=== PATIENT | male | born 1930 | race Caucasian/White ===

== ENCOUNTER 2017-10-10 14:59 | Inpatient (IN) | payer MEDICARE, BC ==
[2017-10-10 15:27] LABS: Hemoglobin 13.3 g/dL (14.0-18.0); Mean Corpuscular HGB CONC 33.3 g/dL (32.0-36.0); Mean Corpuscular Hemoglobin 30.5 pg (27.0-31.0); Mean Corpuscular Volume 91.7 fl (80.0-94.0); Mean Platelet Volume 7.3 fL (7.4-10.4); Platelet Count 155 thou/uL (130-400); RBC Distribution Width 12.8 % (11.5-14.5); Red Blood Cell (RBC) Count 4.36 mill/uL (4.70-6.10)
[2017-10-10 15:43] LABS: Band 20 % (5-11); Lymphocytes 6 % (21-51); MDiff Complete? YES; Monocytes 11 % (0-10); Neutrophil 63 % (42-75)
[2017-10-10] MEDS ORDERED: Acetaminophen 325 MG Suppository ONE (15:47)
[2017-10-10 15:51] LABS: ALT (SGPT) 21 U/L (8-55); AST (SGOT) 48 U/L (5-34); Albumin 3.6 g/dL (3.4-4.8); Alkaline Phosphatase 62 U/L (40-150); Anion Gap 18 mmol/L (10-20); BUN (Urea Nitrogen) 34 mg/dL (8.4-25.7); Bilirubin, Total 0.8 mg/dL (0.2-1.2); CK (CPK) 699 U/L (30-200); Calc. Creatinine Clearance 0 mL/min (70-130); Calcium 9.7 mg/dL (7.8-10.44); Carbon Dioxide 18 mmol/L (23-31); Chloride 108 mmol/L (98-107); Estimated GFR-MDRD 42; Glucose 87 mg/dL (83-110); Potassium 5.2 mmol/L (3.5-5.1); Protein, Total 6.6 g/dL (5.8-8.1); Sodium 139 mmol/L (136-145)
[2017-10-10 15:52] LABS: CKMB 2.4 ng/mL (0-6.6); Troponin I 0.078 ng/mL (< 0.028)
[2017-10-10 15:53] LABS: Bilirubin Small (Negative); Blood, Urine Moderate (Negative); Clarity CLOUDY (Clear); Glucose, Urine (Dipstick) Negative (Negative); Leukocyte Small (Negative); Nitrite Negative (Negative); Protein, Urine (Dipstick) 30 mg/dL (Neg-Trace); Specific Gravity, Urine 1.018 (1.002-1.036); Urobilinogen 0.2 mg/dL (0.2-1.0); pH, Urine 5.5 (5.0-9.0)
--- NOTE | 2017-10-10 15:56 | RAD ---
CHEST 1 VIEW: Date: 10/10/17 HISTORY: Possible sepsis. Shortness of breath. COMPARISON: None. FINDINGS: There is a left-sided transvenous pacemaker with lead position in right atrium and right ventricle. S ternotomy wires are present. There is atherosclerosis of aorta. Diminished lung volumes. Patchy inter stitial opacities in the right lung. There are interstitial and alveolar infiltrates in the left tenisha hilar region and left lower lobe. Small left-sided effusion suspected. No pneumothorax. IMPRESSION: 1. Pleural and parenchymal changes left lung base. 2. Patchy interstitial opacities right lung. 3. Atherosclerosis. POS: [facility]
[2017-10-10 15:57] LABS: Pathc Cast-AUWi Flag 1.21 (0-2.49); Squamous Epithelial 0-3 HPF (0-3)
[2017-10-10 16:07] LABS: Yeast-AUWi Flag 40.6 (0-25.0)
[2017-10-10 16:14] LABS: Bacteria/HPF 2+ HPF (None Seen); Hyaline Casts/LPF 0-3 HYALINE CAST LPF (0-3 Hyaline); Renal Epithelial None Seen HPF (0-3); Transitional Epithelial NONE SEEN HPF (0-3); Yeast-All Forms None Seen HPF (None Seen)
[2017-10-10] MEDS ORDERED: Piperacillin/Tazobactam 4.5 GM in Sodium Chloride 0.9% 100 ML IVPB SCH (16:15)
[2017-10-10] MEDS ORDERED: Vancomycin HCl 1.25 GM in Sodium Chloride 0.9% 250 ML 250 ML IVPB SCH (16:15)
--- NOTE | 2017-10-10 16:52 | RAD ---
PORTABLE CHEST 1 VIEW: Date: 10/10/17 Time: 1544 hours HISTORY: Altered mental status. FINDINGS/IMPRESSION: The heart is enlarged. There are changes of median sternotomy. There is a left-sided pacemaker device . There are patchy areas of consolidation in the left lung. No pneumothoraces or large effusions are seen. Findings are suspicious for pneumonia. POS: OFF
[2017-10-10] MEDS ORDERED: Norepinephrine 8 MG in Sodium Chloride 0.9% 250 ML 250 ML IVPB PRN (16:56)
--- NOTE | 2017-10-10 18:35 | HP ---
DATE OF ADMISSION: 10/10/2017 CHIEF COMPLAINT: Found unresponsive at home. HISTORY OF PRESENT ILLNESS: This is an 87-year-old white male who has known history of hypertension, history of pacemaker and recent history of aortic valve repair. The patient was in his usual state of health, living alone. His being few years ago. The patient was visited by one of [facility] service today afternoon around 3:00 and was noted to have patient was lying with his waist do wn on the bed and with legs hanging from the bed. When the maid approach the patient, he just opened his eyes and was alert and was very weak. The patient was brought to the ER for further evaluation. He was noted to have acute shortness of breath with a drop in saturations in 80% with systolic bloo d pressures in the 60s. When ER physician questioned him, patient was able to talk in full sentences and was more alert. He was given 2 liters of normal saline and his blood pressures systolic moved u p to 70s with a low map of 45. The patient had a thorough evaluation with chest x-ray showing eviden ce of bilateral pneumonia with right-sided infiltrates dominating over the left side. He had a mild troponin elevation with EKG being normal. The patient also had mildly elevated WBCs with mild elevat ion of bands. His urine was suggestive of a urinary tract infection. The patient was seen in the ER, he was alert and oriented, but had some coarse breath sounds, but he was saturating 99%. Able to talk about the code status with the patient, he wanted a full resuscitat ion including intubation. I discussed the case also with patient's daughter who is the medical power of state attorney and she also s uggested complete full resuscitation if needed. I also discussed the case with his grandson who is rubin general surgeon, who said the patient has a history of aortic valve repair and also has a cardiolo gist in town. Patient had very low blood pressures, so I requested the ER physician to start him on a central line and start him on Levophed at this time. PAST MEDICAL HISTORY: Hypertension, patient denies having any abdominal pain. Denies having any tracy sea. At this time, no vomiting, no recent diarrhea, no constipation. No history of any sick contact s. He did have a flu vaccine this season and he denies having any sick contacts recently. He does c omplain of some dry cough for the past few days, but otherwise he denies choking on food. He denies having any chest pain or any recent shortness of breath. PAST MEDICAL HISTORY: 1. Hypertension. 2. History of pacemaker placement. 3. History of aortic valve repair. The details are not available. 4. History of bladder intervention recently. PAST SURGICAL HISTORY: 1. Pacemaker implantation. 2. Recent bladder surgery. 3. History of aortic valve repair. SOCIAL HISTORY: The patient is a nonsmoker. No history of alcohol, no history of illicit drug use. He lives alone and is . FAMILY HISTORY: No significant family history of coronary artery disease or any premature deaths in the family. REVIEW OF SYSTEMS: All 12 systems are reviewed with the patient thoroughly and found to be negative at this time except the ones described in history of present illness. Constitutional: Weight loss or gain, sense of well-being, ability to conduct usual activities, exerc ise tolerance. Skin/Breast: Rash, itching, changes in hair growth or loss, nail changes, breast lumps, tenderness, swelling, nipple discharge. Eyes: Vision, double vision, tearing, blind spots, pain. ENT/Mouth: Headaches (location, time of onset, duration, precipitating factors), vertigo, lightheade dness, injury. Vision, double vision, tearing, blind spots, pain, nose bleeding, colds, obstruction, discharge, dental difficulties, gingival bleeding, dentures, neck stiffness, pain, tenderness, mikey s in thyroid or other areas. Cardiovascular: Precordial pain, substernal distress, palpitations, syncope, dyspnea on exertion, or thopnea, nocturnal paroxysmal dyspnea, edema, cyanosis, hypertension, heart murmurs, varicosities, ph lebitis, claudication. Respiratory: Pain, shortness of breath, wheezing, stridor, cough, hemoptysis, fever or night sweats. Gastrointestinal: Poor appetite, dysphagia, indigestion, abdominal pain, heartburn, eructation, naus ea, vomiting, hematemesis, jaundice, constipation, or diarrhea, abnormal stools (eloy-colored, tarry, bloody, greasy, foul smelling), flatulence, hemorrhoids, recent changes in bowel habits. Genitourinary: Urgency, frequency, dysuria, nocturia, hematuria, polyuria, oliguria, unusual (or bruce nge in) color of urine, stones, hesitancy, change in size of stream, dribbling, acute retention or in continence, libido, potency. Musculoskeletal: Pain, swelling, redness or heat of muscles or joints, limitation, of motion, muscul ar weakness, atrophy, cramps. Neurologic/Psychiatric: Convulsions, paralyses, tremor, incoordination, parasthesias, difficulties w ith memory of speech, sensory or motor disturbances, or muscular coordination (ataxia, tremor), emoti onal problems, anxiety, depression, previous psychiatric care, unusual perceptions, hallucinations. Allergy/Immunologic: Skin rash, anemia, bleeding tendency, polydipsia, polyuria, intolerance to heat or cold. PHYSICAL EXAMINATION: VITAL SIGNS: Blood pressures are 70/45 with a map of 41, respiratory rate of 20, saturation is 99% o n 3 liters. GENERAL: The patient is seen lying in the bed supine, does not appears to be in any acute distress a t this time. He is alert and oriented. HEENT: Atraumatic, normocephalic. PERRLA. Extraocular movements are intact. Oral mucosa is dry. CARDIOVASCULAR: S1, S2 normal. No murmurs, rubs or gallops. LUNGS: Bilateral air entry was equal. No wheezing, no crackles. ABDOMEN: Soft, nontender, no guarding, no rebound tenderness. Bowel sounds normal. MUSCULOSKELETAL: No calf tenderness or pedal edema. No joint tenderness, no joint swelling. SKIN: No cyanosis, no erythema, no rash, no pallor. INTERNAL GRINDING MACHINE OPERATOR: Cranial examination II-XII intact. No focal deficits were noted. NECK: No JVD, no lymphedema, no lymphadenopathy was noted. PSYCHIATRIC: No signs of suicidal ideation, no signs of luis enrique. No signs of agitation. No signs of depression were noted. LABORATORY DATA: Sodium 139, potassium 5.2, chloride 108, bicarbonate is 18, BUN is 34, creatinine i s 1.58, blood sugar is 87. Lactic acid is 4.5, AST 48, ALT 21. CK is 699, troponin 0.078. UA was positive for urinary tract infection. Chest x-ray was done showing evidence of pleural and parenchymal changes in the left lung base, showi ng an evidence of patchy interstitial opacities in the right lung. ASSESSMENT: 1. Septic shock. 2. Acute aspiration pneumonia. 3. Acute hypoxic respiratory failure. 4. History of aortic valve repair, need to rule out cardiogenic shock. 5. Acute urinary tract infection. 6. Hyperkalemia. 7. Acute kidney injury with oliguria. 8. Non-ST elevation myocardial infarction PLAN: 1. Plan is to continue the IV fluids with fluid resuscitation. Continue 100 mL an hour and we will start the patient on Levophed after central line is placed. Critical care, Dr. Dykes has been consul candida from the ER. We will follow with recommendations. At this time, we will empirically start the p atient on levofloxacin, Zosyn, and vancomycin for broad coverage for sepsis. 2. The patient has evidence of aspiration pneumonia with right-sided infiltrates at this time. We w ill cover with above antibiotics and we will continue with the nebulizer treatments, DuoNebs and albu terol nebs as needed. 3. We will do a speech evaluation in the morning and we will keep the patient n.p.o. except for the medications. 4. The patient has acute respiratory failure likely from the pneumonia. We will closely monitor his respiratory status at this time and if needed, we will plan to intubate at this time. We will get s tat ABGs for the baseline hypoxia. 5. Need to evaluate if the patient has a pulmonary embolism. We will start the patient on Lovenox a t this time with a 1 mg/kg b.i.d. 6. Elevated troponins, most likely this could be a demand ischemia, likely from an organ hypoperfusi on from low blood pressures. We will continue with aspirin per rectal and we will hold off on the be ta blockers because of the low blood pressures. 7. Patient has low renal perfusion as causing a call renal insufficiency at this time. We will cont inue with IV fluids at this time. We will closely monitor the renal functions. 8. Patient has elevated potassium. We will do Kayexalate to bring down the potassium levels. 9. The patient has evidence of urinary tract infection which could have triggered everything, this w ould be covered with above antibiotics. 10. We will send for urine cultures. 11. This patient has history of aortic valve repair. We will do a stat echo to look for any evidenc e of wall motion abnormalities or any worsening valvular problem. We will consult Cardiology based o n that. 12. Deep venous thrombosis prophylaxis. The patient will be on Lovenox. Dictating physician, Reza Gillespie, has spent 75 minutes with this patient; of this, one hour as critic al care time.
[2017-10-10] MEDS ORDERED: Acetaminophen 325 MG TAB PO PRN (18:51)
[2017-10-10] MEDS ORDERED: Ondansetron HCl/PF 4 MG/2 ML Vial IVP PRN ×2 (18:51→19:21)
[2017-10-10] MEDS ORDERED: Ondansetron ODT 4 MG TAB SL PRN (18:51)
[2017-10-10] MEDS ORDERED: Lactated Ringer's 1,000 ML IV SCH (19:00)
[2017-10-10 19:13] LABS: Troponin I 0.099 ng/mL (< 0.028)
[2017-10-10] MEDS ORDERED: Sodium Chloride 0.9% 1,000 ML IV SCH (19:21)
[2017-10-10] MEDS ORDERED: Norepinephrine 8 MG/0.9% NS 250 ML IVPB SCH (19:21)
[2017-10-10 19:51] LABS: Lactic Acid 6.3 mmol/L (0.5-2.2)
--- NOTE | 2017-10-10 20:14 | RAD ---
CHEST ONE VIEW: History: Central line placement. Comparison: Radiograph same day. FINDINGS: Left upper lobe opacity as well as a left lower opacity are present. Central venous catheter is in pl gray with tip poorly seen although likely projecting over the inferior SVC. No pneumothorax. IMPRESSION: Uncomplicated placement of central venous catheter with the tip poorly seen although likely projectin g over the inferior SVC. POS: [facility]
[2017-10-10 20:15] VITALS: BMI 30.2
[2017-10-10] MEDS: Sodium Chloride 0.9% 1,000 ML IV SCH (20:31)
[2017-10-10] MEDS ORDERED: Vancomycin HCl 1 GM in Sodium Chloride 0.9% 250 ML 250 ML IVPB SCH (21:00)
[2017-10-10] MEDS ORDERED: Famotidine/PF 20 mg/2ml Vial SLOW IVP SCH (21:00)
[2017-10-10 21:58] LABS: Troponin I 0.078 ng/mL (< 0.028)
[2017-10-11 04:49] LABS: Anion Gap 15 mmol/L (10-20); BUN (Urea Nitrogen) 36 mg/dL (8.4-25.7); Calc. Creatinine Clearance 49 mL/min (70-130); Calcium 8.6 mg/dL (7.8-10.44); Carbon Dioxide 19 mmol/L (23-31); Chloride 109 mmol/L (98-107); Estimated GFR-MDRD 55; Glucose 75 mg/dL (83-110); Potassium 4.1 mmol/L (3.5-5.1); Sodium 139 mmol/L (136-145)
[2017-10-11] MEDS: Piperacillin/Tazobactam 4.5 GM in Sodium Chloride 0.9% 100 ML IVPB SCH ×3 (05:09)
[2017-10-11] MEDS: Sodium Chloride 0.9% 1,000 ML IV SCH ×2 (05:31→15:59)
[2017-10-11 06:10] LABS: Band 25 % (5-11); Hemoglobin 11.9 g/dL (14.0-18.0); Lymphocytes 5 % (21-51); MDiff Complete? YES; Mean Corpuscular HGB CONC 33.7 g/dL (32.0-36.0); Mean Corpuscular Hemoglobin 30.8 pg (27.0-31.0); Mean Corpuscular Volume 91.4 fl (80.0-94.0); Mean Platelet Volume 7.1 fL (7.4-10.4); Metamyelocyte 4 % (0-0); Monocytes 9 % (0-10); Myelocyte 1 % (0-0); Neutrophil 56 % (42-75); Platelet Count 159 thou/uL (130-400); RBC Distribution Width 13.1 % (11.5-14.5); Red Blood Cell (RBC) Count 3.87 mill/uL (4.70-6.10)
[2017-10-11] MEDS ORDERED: guaiFENesin/Dextromethorphan 10 ML UDCUP PO PRN (07:27)
--- NOTE | 2017-10-11 07:52 | CON ---
DATE OF CONSULTATION: 10/11/2017 CONSULTING PHYSICIAN: Dr. Reza Gillespie from the Hospitalist group. REASON FOR CONSULTATION: Pneumonia and septic shock. HISTORY OF PRESENT ILLNESS: This is an 87-year-old male who was apparently found in bad shape at [facility] by a maid. He was brought to the ER where he was found to be in septic shock from a left-sided pne [place]. He has been fluid resuscitated and given antibiotics. He is currently requiring Levophed fo r vasopressor support and he is hospitalized in the CCU. He is somewhat confused and difficult to ge t a history from. PAST MEDICAL HISTORY: 1. Hypertension. 2. Aortic valve disease requiring replacement. 3. Pacemaker placement. 4. Some type of bladder intervention. SOCIAL HISTORY: Nonsmoker, does not consume alcohol. Lives alone, is . MEDICATIONS PRIOR TO ADMISSION: Not known at this time. FAMILY MEDICAL HISTORY: Not known. REVIEW OF SYSTEMS: Twelve point review of systems is unobtainable secondary to patient's confusion. PHYSICAL EXAMINATION: VITAL SIGNS: Temperature 98.2, pulse 83, blood pressure 136/59, O2 sat 95%, currently on nasal cannu la. Total intake 2730, output 405. GENERAL: The patient is arousable. He was not oriented to place, but was oriented to date and perso n. HEENT: Unremarkable. NECK: No adenopathy or JVD. LUNGS: Coarse rhonchi bilaterally. CARDIOVASCULAR: S1, S2, paced. He has a midline sternotomy scar. ABDOMEN: Soft, nontender, no hepatosplenomegaly. EXTREMITIES: No clubbing, cyanosis, or edema. NEUROLOGIC: He moves all 4 extremities without difficulty. LABORATORY DATA: Sodium 139, potassium 4.1, chloride 109, CO2 19, BUN 36, creatinine 1.2, glucose 75 . Lactate 6.3, troponin 0.78. C-reactive protein 8.33. Urinalysis showed 4-6 white blood cells, 7- 10 red blood cells. White blood cell count 18, hematocrit 35.4, platelet count 159 with 56% neutroph ils, 25% bands. Chest x-ray reviewed by myself personally demonstrates a left-sided infiltrate. He has a central zoran e present in the right IJ that is in good position. Initial x-ray shows blurring left diaphragm, but this cleared on subsequent x-ray. ASSESSMENT: 1. Community-acquired pneumonia. 2. Septic shock. 3. Advanced age. 4. History of pacemaker placement. PLAN: The patient has been reasonably fluid resuscitated. We will check a CVP to see what his volum e status is. He will continue broad spectrum IV antibiotics to include Zosyn, Levaquin, and vancomyc in. I will go ahead and check a cortisol level to make sure he is not adrenally insufficient. He is on Pepcid for gastrointestinal prophylaxis and enoxaparin for DVT prophylaxis. Prognosis is guarded at this time. We will follow. The above encompassed 35 minutes critical care time.
[2017-10-11] MEDS ORDERED: Norepinephrine 8 MG in Sodium Chloride 0.9% 250 ML 250 ML IVPB PRN (08:10)
[2017-10-11] MEDS ORDERED: Prevnar 13-Val Conj/PF 0.5 ML SYRINGE IM ONE (09:00)
[2017-10-11] MEDS: Piperacillin/Tazobactam 3.375 GM in Sodium Chloride 0.9% 100 ML IVPB SCH ×2 (09:40→16:29)
[2017-10-11] MEDS: Enoxaparin Sodium 40 MG/0.4 ML SYRINGE SC SCH (09:40)
--- NOTE | 2017-10-11 13:05 | CON ---
CRITICAL CARE NOTE TIME: 30 minutes DATE OF SERVICE: 10/11/2017 HISTORY: The patient is an 87-year-old gentleman with a history of aortic valve replacement who presented with acute onset of weakness and apparently lost consciousness. The patient in 2011 underwent aortic valve replacement and apparently coronary bypass graft surgery x2. The patient also had placement of electronic pacemaker. The patient states that he acutely apparently became weak. He denied having any chest discomfort. He apparently became disoriented and was sent to the emergency room for further evaluation. The patient denied having any chest discomfort or dyspnea. The patient denied having any fevers or chills. PAST MEDICAL HISTORY: 1. Coronary artery disease. 2. Aortic valve replacement. 3. Dyslipidemia. 4. Hypertension. PAST SURGICAL HISTORY: Bladder surgery,and aortic valve repair. SOCIAL HISTORY: Nonsmoker. FAMILY HISTORY: No strong family history of coronary artery disease. ALLERGIES: No known drug allergies. MEDICATIONS ON ADMISSION: Atenolol 25 daily, Crestor 5 daily, Flomax 0.4 daily , and a baby aspirin tablet daily. PHYSICAL EXAMINATION: GENERAL: An ill-appearing gentleman. VITAL SIGNS: Blood pressure 124/61 on Levophed. NECK: No jugular venous distention. LUNGS: Crackles in the left lung base. HEART: Regular rate and rhythm, normal S1, S2. ABDOMEN: Nondistended. EXTREMITIES: Showed no edema. SKIN: The skin is warm and dry. VASCULAR: Radial pulses 2+. LABORATORY DATA: White blood cell count 18.0, hemoglobin 11.9, hematocrit 35.4 and his platelets are 159. Sodium was 139, potassium 4.1, chloride 109, bicarbonate 19, BUN 36, creatinine 1.2. Troponin 0.078. His EKG revealed him to have electronic ventricular pacemaker. His chest x-ray revealed evidence of a left lower lobe infiltrate. IMPRESSION: 1. Septic shock/pneumonia. 2. History of aortic valve repair. 3. History of coronary bypass graft surgery. 4. History of pacemaker placement. 5. Dyslipidemia. 6. Hypertension. This gentleman presents with septic shock. From a cardiac standpoint, we will restart him on aspirin and lipid lowering medication. The patient's troponin is indeterminate, probably secondary to demand ischemia. We will follow this patient with you through his hospitalization. We will check the patient's echocardiogram. Critical care note 30 minutes. MARIA ESTHER
[2017-10-11] MEDS ORDERED: Aspirin 81 mg Enteric Coated Tablet PO SCH (14:00)
--- NOTE | 2017-10-11 14:03 | PDOC.PN ---
- Subjective Encounter Start Date: 10/11/17 Encounter Start Time: 11:00 Iris is seen today, aleert and orirented x2, Discussed with patient Cousin on phone and Daughter at Bedside, explained about the prognosis is poor due to severe sepsis and septic shock. Answered all the questions. - Objective Resuscitation Status: Resuscitation Status FULL:Full Resuscitation MAR Reviewed: Yes Vital Signs & Weight: Vital Signs (12 hours) Temp Pulse Resp Pulse Ox 10/11/17 12:00 98.0 F 10/11/17 08:00 98.5 F 72 24 H 98 10/11/17 06:47 98 10/11/17 04:00 98.2 F Weight Weight 187 lb 6.287 oz Most Recent Monitor Data Heart Rate from ECG 73 NIBP 124/61 NIBP BP-Mean 100 Respiration from ECG 21 SpO2 98 I&O: 10/10/17 10/11/17 10/12/17 06:59 06:59 06:59 Intake Total 2730 320 Output Total 405 220 Balance 2325 100 Result Diagrams: 10/11/17 03:55 10/11/17 03:55 Radiology Reviewed by me: Yes EKG Reviewed by me: Yes Phys Exam - Physical Examination HEENT: PERRLA, moist MMs Neck: no nodes, no JVD Respiratory: no rales, wheezing present Cardiovascular: RRR, no significant murmur Gastrointestinal: soft, non-tender Musculoskeletal: no edema, pulses present Neurological: non-focal, normal sensation Psychiatric: normal affect, A&O x 3 Skin: no rash, normal turgor Dx/Plan (1) Septic shock Code(s): A41.9 - SEPSIS, UNSPECIFIED ORGANISM; R65.21 - SEVERE SEPSIS WITH SEPTIC SHOCK Status: Acute Comment: Pt is On levophed, Still on IV fluids, Will continue to Monitor, pt is On IV antibitoics Levofloxaic, Zosyn and vancomycin broad coverage, Critical care on Board, continue with nebs ss needed. Worseing Sepsis noted. Blood Cultures grwoing Gram positive Staph epi? (2) Acute aspiration pneumonia Code(s): J69.0 - PNEUMONITIS DUE TO INHALATION OF FOOD AND VOMIT Status: Acute Comment: Left Lung and Right upperr lobe Infiltatre, Noted, Will continue with Above Antibitoics, With Neb treamtnet. Waiting on Speech evalaution, (3) Acute respiratory failure with hypoxia Code(s): J96.01 - ACUTE RESPIRATORY FAILURE WITH HYPOXIA Status: Acute Comment: Pt is stbale with nasal Canula 3-4 literes saturating well, oriented. and alert. (4) H/O aortic valve repair Status: Acute Comment: Cardiology Consulted, Echo pending, need to R/o Any evidence of Endocarditiis. H/o aortic valave repair. (5) Acute UTI Code(s): N39.0 - URINARY TRACT INFECTION, SITE NOT SPECIFIED Status: Acute Comment: Waitng for the cultures. COntinue abouve Abx, good urine output Noted. - Plan cont current plan of care, plan discussed w/ family, continue antibiotics, speech therapy, incentive spirometry * . - Discharge Day Encounter end time: 11:40 (35 Min of Critical care Time ) Review of Systems - Review of Systems Constitutional: weakness, malaise Respiratory: Shortness of Breath, Sputum, Wheezing Cardiovascular: negative: chest pain, palpitations, orthopnea, paroxysmal nocturnal dyspnea, edema, light headedness, other Gastrointestinal: negative: Nausea, Vomiting, Abdominal Pain, Diarrhea, Constipation, Melena, Hematochezia, Other Genitourinary: negative: Dysuria, Frequency, Incontinence, Hematuria, Retention , Other Musculoskeletal: negative: Neck Pain, Shoulder Pain, Arm Pain, Back Pain, Hand Pain, Leg Pain, Foot Pain, Other Skin: negative: Rash, Lesions, Danny, Bruising, Other - Medications/Allergies Allergies/Adverse Reactions: Allergies Allergy/AdvReac Type Severity Reaction Status Date / Time No Known Drug Allergies Allergy Verified 10/10/17 21:44 Medications: Current Medications Aspirin (Ecotrin) 81 mg PO DAILY [facility] Aspirin (Ecotrin) 81 mg PO NOW [facility] Stop: 10/11/17 16:00 Enoxaparin Sodium (Lovenox) 40 mg SC 0900 [facility] Last Admin: 10/11/17 09:40 Dose: 40 mg Famotidine (Pepcid) 20 mg PO QPM [facility] Guaifenesin/Dextromethorphan (Robitussin Dm) 10 ml PO Q6H PRN PRN Reason: Cough Sodium Chloride (Normal Saline 0.9%) 1,000 mls @ 100 mls/hr IV .Q10H [facility] Last Admin: 10/11/17 05:31 Dose: 1,000 mls Vancomycin HCl 1 gm/ Device 200 mls @ 200 mls/hr IVPB 1700 [facility] Levofloxacin 750 mg/ Device 150 mls @ 100 mls/hr IVPB Q2D@1600 [facility] Piperacillin Sod/Tazobactam (Sod 3.375 gm/ Sodium Chloride) 100 mls @ 200 mls/ hr IVPB 0500,1100,1700,2300 [facility] Last Admin: 10/11/17 09:40 Dose: 100 mls Norepinephrine Bitartrate 8 mg (/ Sodium Chloride) 258 mls @ 0 mls/hr IVPB INF PRN; Protocol; Titrate PRN Reason: Blood Pressure Last Admin: 10/11/17 09:50 Dose: 258 mls Miscellaneous Medication (Pharmacy To Dose) 1 each IVPB PRN PRN PRN Reason: . Ondansetron HCl (Zofran) 4 mg IVP Q6H PRN PRN Reason: Nausea/Vomiting Pneumococcal 13-Valent Conj Vacc (Prevnar) 0.5 ml IM .ONCE ONE Stop: 10/14/17 09:16 Rosuvastatin Calcium (Crestor) 5 mg PO HS [facility]
[2017-10-11 15:29] LABS: Actual Bicarbonate (HCO3a) 17.9 mEq/L (22-26); Base Excess (BEa) -6.7 mEq/L (0 (+/-) 2.5); Hemoglobin (Hb) 12.3 g/dL (14.0-18.0); pH, Arterial 7.35 (7.35-7.45)
[2017-10-11 15:30] LABS: Calcium, Ionized 1.2 mmol/L (1.12-1.30); Puncture Site RR
[2017-10-11] MEDS ORDERED: Aspirin 300 MG Suppository PR SCH (15:45)
[2017-10-11] MEDS ORDERED: Lorazepam 2 MG/ML VIAL SLOW IVP PRN ×2 (15:45→20:45)
[2017-10-11] MEDS: Vancomycin HCl 1 GM in Premix Bag 1 BAG IVPB SCH (16:33)
[2017-10-11] MEDS: Famotidine 20 MG TAB PO SCH (21:33)
[2017-10-11] MEDS: Rosuvastatin 5 MG TAB PO SCH (21:33)
[2017-10-12] MEDS: Piperacillin/Tazobactam 3.375 GM in Sodium Chloride 0.9% 100 ML IVPB SCH ×5 (00:10→22:30)
[2017-10-12] MEDS: Sodium Chloride 0.9% 1,000 ML IV SCH (01:45)
[2017-10-12 04:36] LABS: Anion Gap 9 mmol/L (10-20); BUN (Urea Nitrogen) 30 mg/dL (8.4-25.7); Calc. Creatinine Clearance 56 mL/min (70-130); Carbon Dioxide 22 mmol/L (23-31); Chloride 112 mmol/L (98-107); Estimated GFR-MDRD 65; Glucose 87 mg/dL (83-110); Potassium 3.3 mmol/L (3.5-5.1); Sodium 140 mmol/L (136-145)
[2017-10-12 04:48] LABS: Band 31 % (5-11); Hemoglobin 11.5 g/dL (14.0-18.0); Lymphocytes 7 % (21-51); MDiff Complete? YES; Mean Corpuscular HGB CONC 33.2 g/dL (32.0-36.0); Mean Corpuscular Hemoglobin 30.9 pg (27.0-31.0); Mean Corpuscular Volume 93.3 fl (80.0-94.0); Mean Platelet Volume 7.6 fL (7.4-10.4); Monocytes 4 % (0-10); Neutrophil 58 % (42-75); Platelet Count 126 thou/uL (130-400); RBC Distribution Width 12.9 % (11.5-14.5); Red Blood Cell (RBC) Count 3.72 mill/uL (4.70-6.10); White Blood Cell (WBC) Count 15.6 thou/uL (4.8-10.8)
[2017-10-12] MEDS ORDERED: CCU Electrolyte Replacement 1 EACH FS ONE (08:25)
[2017-10-12] MEDS ORDERED: Potassium Phosphate 15 MMOL in Sodium Chloride 0.9% 250 ML 250 ML IV PRN (08:31)
[2017-10-12] MEDS ORDERED: Magnesium Oxide 400 MG TAB PO PRN ×2 (08:31)
[2017-10-12] MEDS ORDERED: Potassium Chloride 40 MEQ in Sodium Chloride 0.9% 250 ML 250 ML IVPB PRN (08:31)
[2017-10-12] MEDS ORDERED: Magnesium 2 GM/NS 0.9% 100 ML 2 GM in Premix Bag 1 BAG IVPB PRN (08:31)
[2017-10-12] MEDS ORDERED: Potassium Chloride 20 MEQ TAB PO PRN (08:31)
[2017-10-12] MEDS ORDERED: Potassium Phosphate 9 MMOL in Sodium Chloride 0.9% 100 ML IVPB PRN (08:31)
[2017-10-12] MEDS ORDERED: Potassium Chloride 40 MEQ in Premix Bag 1 BAG IVPB PRN (08:31)
[2017-10-12] MEDS ORDERED: Potassium Phosphate 12 MMOL in Sodium Chloride 0.9% 250 ML 250 ML IV PRN (08:31)
[2017-10-12] MEDS: Enoxaparin Sodium 40 MG/0.4 ML SYRINGE SC SCH (08:32)
--- NOTE | 2017-10-12 08:42 | PRG ---
DATE OF SERVICE: 10/12/2017 PULMONARY AND CRITICAL CARE PROGRESS NOTE SUBJECTIVE: Mr. Gomez had a rough day yesterday. He required initiation of BiPAP. Once given some Ativan, he was able to go to sleep and he seems much better this morning. PHYSICAL EXAMINATION: VITAL SIGNS: Temperature 97.8, pulse 66, blood pressure 148/71. He is off the Levophed drip as of a bout 3:00 this morning. Total intake for 24 hours 1711 and output 1290. HEENT: Unremarkable. NECK: No JVD. LUNGS: Coarse rhonchi. CARDIOVASCULAR: S1 and S2 regular. ABDOMEN: Soft and nontender. EXTREMITIES: No edema. LABORATORY DATA: Sodium 140, potassium 3.3, chloride 112, CO2 22, BUN 30, creatinine 1.1, glucose 87 , calcium 9.0. Cortisol level was 32. White blood cell count 15.6, hematocrit 34.7, platelet count 126. ASSESSMENT: 1. Community-acquired pneumonia. 2. Septic shock which is resolved. 3. Advanced age. 4. History of pacemaker placement. 5. Low ejection on echo 45%-50%. PLAN: 1. Try off BiPAP today. 2. Continue IV antibiotics. 3. Very judicious use of IV fluids. 4. Replace potassium. 5. Recheck lactate. 6. Repeat chest x-ray tomorrow.
[2017-10-12] MEDS ORDERED: Aspirin 81 mg Enteric Coated Tablet PO SCH (09:00)
[2017-10-12] MEDS ORDERED: Aspirin 300 MG Suppository PR SCH (09:00)
[2017-10-12 09:15] LABS: Lactic Acid 1.3 mmol/L (0.5-2.2)
--- NOTE | 2017-10-12 15:09 | PDOC.PN ---
- Subjective Encounter Start Date: 10/12/17 Encounter Start Time: 13:00 Patient is seen today, Droiwsy and Slepeing, he was given Ativan this morning, pt is more relaxed. - Objective Resuscitation Status: Resuscitation Status FULL:Full Resuscitation MAR Reviewed: Yes Vital Signs & Weight: Vital Signs (12 hours) Temp Pulse Pulse Resp BP Pulse Ox Pulse Ox 10/12/17 14:00 66 19 10/12/17 12:00 98 F 10/12/17 11:26 72 168/79 H 99 10/12/17 10:20 75 168/79 H 98 10/12/17 08:00 98.4 F 60 22 H 98 10/12/17 07:18 67 10/12/17 06:00 23 H 10/12/17 05:00 97.8 F Weight Weight 187 lb 6.287 oz Most Recent Monitor Data Heart Rate from ECG 67 NIBP 168/79 NIBP BP-Mean 89 Respiration from ECG 21 SpO2 95 I&O: 10/11/17 10/12/17 10/13/17 06:59 06:59 06:59 Intake Total 2730 1711 360 Output Total 405 1290 380 Balance 2325 421 -20 Result Diagrams: 10/12/17 04:18 10/12/17 04:18 Radiology Reviewed by me: Yes Phys Exam - Physical Examination HEENT: PERRLA, moist MMs Neck: no nodes, no JVD Respiratory: no wheezing, no rales Cardiovascular: RRR, no significant murmur Gastrointestinal: soft, non-tender Musculoskeletal: no edema, pulses present Neurological: non-focal, normal sensation Psychiatric: normal affect, A&O x 3 Dx/Plan (1) Septic shock Code(s): A41.9 - SEPSIS, UNSPECIFIED ORGANISM; R65.21 - SEVERE SEPSIS WITH SEPTIC SHOCK Status: Acute Comment: Pt is On levophed, Still on IV fluids, Will continue to Monitor, pt is On IV antibitoics Levofloxaic, Zosyn and vancomycin broad coverage, Critical care on Board, continue with nebs ss needed. Worseing Sepsis noted. Blood Cultures grwoing Gram positive Staph epi? repeat Blood Cultures today. (2) Acute aspiration pneumonia Code(s): J69.0 - PNEUMONITIS DUE TO INHALATION OF FOOD AND VOMIT Status: Acute Comment: Left Lung and Right upperr lobe Infiltatre, Noted, Will continue with Above Antibitoics, With Neb treamtnet. Stbale Now. (3) Acute respiratory failure with hypoxia Code(s): J96.01 - ACUTE RESPIRATORY FAILURE WITH HYPOXIA Status: Acute Comment: Pt is stbale with nasal Canula 3-4 literes saturating well, oriented. and alert. pt has pleural effusions likel from CHF, will do BNP. (4) H/O aortic valve repair Status: Acute Comment: Cardiology Consulted, Echo showed 40-45%, no Endocarditiis. H/o aortic valave repair. (5) Acute UTI Code(s): N39.0 - URINARY TRACT INFECTION, SITE NOT SPECIFIED Status: Acute Comment: Waitng for the cultures. COntinue abouve Abx, good urine output Noted. No growth - Plan cont current plan of care, continue antibiotics, PT/OT, vp digital marketing social media and crm, incentive spirometry, DVT proph w/lovenox * . - Discharge Day Encounter end time: 13:35 Review of Systems - Review of Systems Constitutional: negative: fever, chills, sweats, weakness, malaise, other Eyes: negative: Pain, Vision Change, Conjunctivae Inflammation, Eyelid Inflammation, Redness, Other ENT: negative: Ear Pain, Ear Discharge, Nose Pain, Nose Discharge, Nose Congestion, Mouth Pain, Mouth Swelling, Throat Pain, Throat Swelling, Other Respiratory: negative: Cough, Dry, Shortness of Breath, Hemoptysis, SOB with Excertion, Pleuritic Pain, Sputum, Wheezing Cardiovascular: negative: chest pain, palpitations, orthopnea, paroxysmal nocturnal dyspnea, edema, light headedness, other Gastrointestinal: negative: Nausea, Vomiting, Abdominal Pain, Diarrhea, Constipation, Melena, Hematochezia, Other Genitourinary: negative: Dysuria, Frequency, Incontinence, Hematuria, Retention , Other Musculoskeletal: negative: Neck Pain, Shoulder Pain, Arm Pain, Back Pain, Hand Pain, Leg Pain, Foot Pain, Other Skin: negative: Rash, Lesions, Danny, Bruising, Other - Medications/Allergies Allergies/Adverse Reactions: Allergies Allergy/AdvReac Type Severity Reaction Status Date / Time No Known Drug Allergies Allergy Verified 10/10/17 21:44 Medications: Current Medications Aspirin (Aspirin) 300 mg WA DAILY JOSE Last Admin: 10/12/17 08:32 Dose: 300 mg Enoxaparin Sodium (Lovenox) 40 mg SC 0900 [facility] Last Admin: 10/12/17 08:32 Dose: 40 mg Famotidine (Pepcid) 20 mg PO QPM [facility] Last Admin: 10/11/17 21:33 Dose: Not Given Guaifenesin/Dextromethorphan (Robitussin Dm) 10 ml PO Q6H PRN PRN Reason: Cough Sodium Chloride (Normal Saline 0.9%) 1,000 mls @ 50 mls/hr IV .Q20H [facility] Last Admin: 10/12/17 01:45 Dose: 1,000 mls Vancomycin HCl 1 gm/ Device 200 mls @ 200 mls/hr IVPB 1700 [facility] Last Admin: 10/11/17 16:33 Dose: 200 mls Levofloxacin 750 mg/ Device 150 mls @ 100 mls/hr IVPB Q2D@1600 [facility] Piperacillin Sod/Tazobactam (Sod 3.375 gm/ Sodium Chloride) 100 mls @ 200 mls/ hr IVPB 0500,1100,1700,2300 [facility] Last Admin: 10/12/17 11:27 Dose: 100 mls Norepinephrine Bitartrate 8 mg (/ Sodium Chloride) 258 mls @ 0 mls/hr IVPB INF PRN; Protocol; Titrate PRN Reason: Blood Pressure Last Admin: 10/11/17 09:50 Dose: 258 mls Potassium Chloride 40 meq/ (Sodium Chloride) 270 mls @ 135 mls/hr IVPB ASDIR PRN PRN Reason: FOR SERUM K+ 2.5 - 3.5 Potassium Chloride 40 meq/ (Device) 100 mls @ 50 mls/hr IVPB ASDIR PRN PRN Reason: FOR SERUM K+ 2.5 - 3.5 Last Admin: 10/12/17 08:40 Dose: 100 mls Magnesium Sulfate 1 gm/ Sodium (Chloride) 102 mls @ 102 mls/hr IV PRN PRN PRN Reason: MAG LEVEL 1.4 - 2.0 Magnesium Sulfate 2 gm/ Device 100 mls @ 100 mls/hr IVPB ASDIR PRN PRN Reason: MAGNESIUM < 1.4 Potassium Phosphate 9 mmol/ (Sodium Chloride) 103 mls @ 25.75 mls/hr IVPB ASDIR PRN PRN Reason: Phosphate 1.0-1.8 Potassium Phosphate 12 mmol/ (Sodium Chloride) 254 mls @ 63.5 mls/hr IV ASDIR PRN PRN Reason: Serum phosphate 0.5-0.9 Potassium Phosphate 15 mmol/ (Sodium Chloride) 255 mls @ 63.75 mls/hr IV ASDIR PRN PRN Reason: Serum Phos < 0.5 Lorazepam (Ativan) 1 mg SLOW IVP Q4H PRN PRN Reason: Anxiety/Agitation Last Admin: 10/11/17 20:56 Dose: 1 mg Magnesium Oxide (Magnesium Oxide) 400 mg PO BIDPRN PRN PRN Reason: FOR SERUM MAG 1.4 - 2.0 Magnesium Oxide (Magnesium Oxide) 800 mg PO PRN PRN PRN Reason: FOR SERUM MAG < 1.4 Miscellaneous Medication (Pharmacy To Dose) 1 each IVPB PRN PRN PRN Reason: . Miscellaneous Medication (Phos-Nak) 1 pkt PO TIDPRN PRN PRN Reason: FOR PHOS LEVEL 1.0 - 1.8 Miscellaneous Medication (Phos-Nak) 2 pkt PO TIDPRN PRN PRN Reason: FOR PHOS LEVEL 0.5 - 1.0 Ondansetron HCl (Zofran) 4 mg IVP Q6H PRN PRN Reason: Nausea/Vomiting Pneumococcal 13-Valent Conj Vacc (Prevnar) 0.5 ml IM .ONCE ONE Stop: 10/14/17 09:16 Potassium Chloride (K-Dur) 40 meq PO ASDIR PRN PRN Reason: FOR SERUM K+ 2.5 - 3.5 Potassium Chloride (Klor-Con) 40 meq PER TUBE ASDIR PRN PRN Reason: FOR SERUM K+ 2.5-3.5 Rosuvastatin Calcium (Crestor) 5 mg PO HS JOSE Last Admin: 10/11/17 21:33 Dose: Not Given
[2017-10-12 16:20] LABS: Vancomycin, Trough 8.2 ug/mL
[2017-10-12] MEDS: Vancomycin HCl 1 GM in Premix Bag 1 BAG IVPB SCH ×2 (17:20→18:29)
[2017-10-12] MEDS: Famotidine 20 MG TAB PO SCH (20:07)
[2017-10-12] MEDS: Rosuvastatin 5 MG TAB PO SCH (20:07)
[2017-10-13] MEDS: Piperacillin/Tazobactam 3.375 GM in Sodium Chloride 0.9% 100 ML IVPB SCH ×3 (04:35→17:50)
[2017-10-13] MEDS: Vancomycin HCl 1 GM in Premix Bag 1 BAG IVPB SCH (05:08)
[2017-10-13 05:34] LABS: Band 28 % (5-11); Eosinophils 2 % (0-10); Hemoglobin 10.7 g/dL (14.0-18.0); Lymphocytes 8 % (21-51); MDiff Complete? YES; Mean Corpuscular HGB CONC 32.6 g/dL (32.0-36.0); Mean Corpuscular Hemoglobin 29.7 pg (27.0-31.0); Mean Platelet Volume 6.7 fL (7.4-10.4); Neutrophil 62 % (42-75); PLT Morphology Comment Appears Decreased; Platelet Count 119 thou/uL (130-400); RBC Distribution Width 12.8 % (11.5-14.5); Red Blood Cell (RBC) Count 3.62 mill/uL (4.70-6.10); White Blood Cell (WBC) Count 13.6 thou/uL (4.8-10.8)
[2017-10-13 05:37] LABS: ALT (SGPT) 23 U/L (8-55); AST (SGOT) 31 U/L (5-34); Albumin 2.6 g/dL (3.4-4.8); Alkaline Phosphatase 66 U/L (40-150); Anion Gap 8 mmol/L (10-20); BUN (Urea Nitrogen) 25 mg/dL (8.4-25.7); Bilirubin, Total 0.5 mg/dL (0.2-1.2); Calc. Creatinine Clearance 71 mL/min (70-130); Calcium 8.8 mg/dL (7.8-10.44); Carbon Dioxide 23 mmol/L (23-31); Chloride 114 mmol/L (98-107); Estimated GFR-MDRD 85; Globulin 2.3 g/dL (2.4-3.5); Glucose 99 mg/dL (83-110); Potassium 3.4 mmol/L (3.5-5.1); Protein, Total 4.9 g/dL (5.8-8.1); Sodium 142 mmol/L (136-145)
[2017-10-13] MEDS: Sodium Chloride 0.9% 1,000 ML IV SCH (06:05)
[2017-10-13] MEDS: Aspirin 325 MG TAB PO SCH (08:09)
[2017-10-13] MEDS: Enoxaparin Sodium 40 MG/0.4 ML SYRINGE SC SCH (08:10)
[2017-10-13] MEDS: Famotidine 20 MG TAB PO SCH ×2 (08:10→20:43)
--- NOTE | 2017-10-13 08:10 | RAD ---
PORTABLE CHEST: Date: 10/13/17 HISTORY: CCU follow-up. Dyspnea. COMPARISON: 10/10/17. FINDINGS/IMPRESSION: Central line is unchanged. There continues to be hazy infiltrate in the left mid and lower lung. There is streaky density in the right infrahilar region today, probably representing new atelectasis. There is evidence of small norma ateral effusions, slightly more prominent on the left. Left basilar atelectasis and/or infiltrate. POS: [facility]
--- NOTE | 2017-10-13 08:12 | PRG ---
DATE OF SERVICE: 10/13/2017 He did well overnight, did not require the use of noninvasive ventilation. He is sitting up in a bruce ir complaining of Arellano catheter. PHYSICAL EXAMINATION: VITAL SIGNS: Temperature 98.9, pulse 81, blood pressure 100/52, 24 hour intake 2495, output 1310. NECK: No adenopathy, JVD, or bruits. LUNGS: Inspiratory crackles left base, right side clear. CARDIAC: S1, S2, paced. ABDOMEN: Soft, nontender. EXTREMITIES: No clubbing, cyanosis or edema. LABORATORY DATA: White blood cell count 13.6, hemoglobin 10, hematocrit 33, platelet count 119. Sod ium 142. Potassium 3.4, chloride 114, 23, BUN 25, creatinine 0.9, glucose 99. ASSESSMENT: 1. Left-sided community-acquired pneumonia. 2. Septic shock. 3. Advanced age. 4. History of placements for low ejection fraction. PLAN: 1. Transfer to the floor. 2. Discontinue central line. 3. Continue antibiotics, but consolidate. 4. Discontinue Arellano.
--- NOTE | 2017-10-13 12:56 | PDOC.PN ---
- Subjective Encounter Start Date: 10/13/17 Encounter Start Time: 14:30 Patient is seen today, off of Bipap, Stbale. WBC tredning down. pt is Moved to medical floor. Pt is seen along with her Daughter at bedside. No other concerns noted. - Objective Resuscitation Status: Resuscitation Status FULL:Full Resuscitation MAR Reviewed: Yes Vital Signs & Weight: Vital Signs (12 hours) Temp Pulse Pulse Pulse Pulse Resp BP 10/13/17 12:00 97.3 F L 80 18 10/13/17 10:49 97.2 F L 79 16 10/13/17 08:55 79 80 80 103/59 L 10/13/17 08:00 97.6 F 80 23 H 10/13/17 07:00 97.6 F 10/13/17 04:00 98.9 F BP BP BP Pulse Ox Pulse Ox Pulse Ox Pulse Ox 10/13/17 12:00 125/66 100 10/13/17 10:49 110/65 99 10/13/17 08:55 97/57 L 108/59 L 100 100 100 10/13/17 08:00 100 10/13/17 07:00 10/13/17 04:00 Weight Weight 187 lb 6.287 oz Most Recent Monitor Data Heart Rate from ECG 80 NIBP 108/59 NIBP BP-Mean 83 Respiration from ECG 28 SpO2 100 I&O: 10/12/17 10/13/17 10/14/17 06:59 06:59 06:59 Intake Total 1711 2495 350 Output Total 1290 1310 155 Balance 421 1185 195 Result Diagrams: 10/13/17 05:15 10/13/17 05:15 Radiology Reviewed by me: Yes Dx/Plan (1) Septic shock Code(s): A41.9 - SEPSIS, UNSPECIFIED ORGANISM; R65.21 - SEVERE SEPSIS WITH SEPTIC SHOCK Status: Acute Comment: Pt is On levophed, Still on IV fluids, Will continue to Monitor, pt is On IV antibitoics Levofloxaic, Zosyn and vancomycin broad coverage, Critical care on Board, continue with nebs ss needed. Worseing Sepsis noted. Blood Cultures grwoing Gram positive Staph epi? repeat Blood Cultures are neg. (2) Acute aspiration pneumonia Code(s): J69.0 - PNEUMONITIS DUE TO INHALATION OF FOOD AND VOMIT Status: Acute Comment: Left Lung and Right upperr lobe Infiltatre, Noted, Will continue with Above Antibitoics, With Neb treamtnet. Stbale Now.Plan to Change to Po meds tomorrow. Will continue for total 7 days. (3) Acute respiratory failure with hypoxia Code(s): J96.01 - ACUTE RESPIRATORY FAILURE WITH HYPOXIA Status: Acute Comment: Pt is stbale with nasal Canula 3-4 literes saturating well, oriented. and alert. pt has pleural effusions likel from CHF, (4) H/O aortic valve repair Status: Acute Comment: Cardiology Consulted, Echo showed 40-45%, no Endocarditiis. H/o aortic valave repair. (5) Acute UTI Code(s): N39.0 - URINARY TRACT INFECTION, SITE NOT SPECIFIED Status: Acute Comment: Waitng for the cultures. COntinue abouve Abx, good urine output Noted. No growth - Plan cont current plan of care, plan discussed w/ family, continue antibiotics, PT/OT , social services analyst, respiratory therapy, incentive spirometry, DVT proph w/ lovenox * . - Discharge Day Encounter end time: 15:05 Review of Systems - Review of Systems Constitutional: weakness, malaise Eyes: negative: Pain, Vision Change, Conjunctivae Inflammation, Eyelid Inflammation, Redness, Other ENT: negative: Ear Pain, Ear Discharge, Nose Pain, Nose Discharge, Nose Congestion, Mouth Pain, Mouth Swelling, Throat Pain, Throat Swelling, Other Respiratory: negative: Cough, Dry, Shortness of Breath, Hemoptysis, SOB with Excertion, Pleuritic Pain, Sputum, Wheezing Cardiovascular: negative: chest pain, palpitations, orthopnea, paroxysmal nocturnal dyspnea, edema, light headedness, other Gastrointestinal: negative: Nausea, Vomiting, Abdominal Pain, Diarrhea, Constipation, Melena, Hematochezia, Other Genitourinary: negative: Dysuria, Frequency, Incontinence, Hematuria, Retention , Other Musculoskeletal: negative: Neck Pain, Shoulder Pain, Arm Pain, Back Pain, Hand Pain, Leg Pain, Foot Pain, Other - Medications/Allergies Allergies/Adverse Reactions: Allergies Allergy/AdvReac Type Severity Reaction Status Date / Time No Known Drug Allergies Allergy Verified 10/10/17 21:44 Medications: Current Medications Aspirin (Aspirin) 325 mg PO DAILY JO[facility] Last Admin: 10/13/17 08:09 Dose: 325 mg Enoxaparin Sodium (Lovenox) 40 mg SC 0900 [facility] Last Admin: 10/13/17 08:10 Dose: 40 mg Famotidine (Pepcid) 20 mg PO Q12HR [facility] Last Admin: 10/13/17 08:10 Dose: 20 mg Guaifenesin/Dextromethorphan (Robitussin Dm) 10 ml PO Q6H PRN PRN Reason: Cough Piperacillin Sod/Tazobactam (Sod 3.375 gm/ Sodium Chloride) 100 mls @ 200 mls/ hr IVPB 0500,1100,1700,2300 [facility] Last Admin: 10/13/17 11:44 Dose: 100 mls Levofloxacin 750 mg/ Device 150 mls @ 100 mls/hr IVPB 1600 [facility] Last Admin: 10/13/17 15:37 Dose: 150 mls Ondansetron HCl (Zofran) 4 mg IVP Q6H PRN PRN Reason: Nausea/Vomiting Pneumococcal 13-Valent Conj Vacc (Prevnar) 0.5 ml IM .ONCE ONE Stop: 10/14/17 09:16 Rosuvastatin Calcium (Crestor) 5 mg PO HS [facility] Last Admin: 10/12/17 20:07 Dose: 5 mg
[2017-10-13] MEDS: Rosuvastatin 5 MG TAB PO SCH (20:45)
[2017-10-14] MEDS: Piperacillin/Tazobactam 3.375 GM in Sodium Chloride 0.9% 100 ML IVPB SCH ×2 (00:31→05:05)
[2017-10-14 05:54] LABS: Band 7 % (5-11); Eosinophils 3 % (0-10); Hemoglobin 11.1 g/dL (14.0-18.0); Lymphocytes 14 % (21-51); MDiff Complete? YES; Mean Corpuscular HGB CONC 33.4 g/dL (32.0-36.0); Mean Corpuscular Hemoglobin 30.1 pg (27.0-31.0); Mean Corpuscular Volume 90.1 fl (80.0-94.0); Mean Platelet Volume 7.1 fL (7.4-10.4); Metamyelocyte 1 % (0-0); Monocytes 7 % (0-10); Neutrophil 68 % (42-75); PLT Morphology Comment Appears Adequate; Platelet Count 143 thou/uL (130-400); RBC Distribution Width 12.8 % (11.5-14.5); RBC Morphology Normal; Red Blood Cell (RBC) Count 3.68 mill/uL (4.70-6.10); White Blood Cell (WBC) Count 7.8 thou/uL (4.8-10.8)
[2017-10-14] MEDS: Famotidine 20 MG TAB PO SCH ×2 (08:48→21:45)
[2017-10-14] MEDS: Enoxaparin Sodium 40 MG/0.4 ML SYRINGE SC SCH (08:48)
[2017-10-14] MEDS: Aspirin 325 MG TAB PO SCH (08:48)
--- NOTE | 2017-10-14 08:54 | PRG ---
DATE OF SERVICE: 10/14/2017 Mr. Gomez feels better this morning, but still states he is very weak. PHYSICAL EXAMINATION: VITAL SIGNS: Temperature 98.5, pulse 81, respirations 16, O2 sat 96% on 1 liter, blood pressure 162/ 79. HEENT: Unremarkable. NECK: No JVD. He has a right IJ line in place. CARDIAC: S1 and S2 regular. LUNGS: A few crackles on the left. ABDOMEN: Soft, protuberant. EXTREMITIES: Edematous from the knees downward. LABORATORY DATA: White blood cell count 7.8, hematocrit 33.2, platelet count 143. ASSESSMENT: 1. Community-acquired pneumonia. 2. Status post hypoxic respiratory failure requiring noninvasive ventilation. 3. Status post septic shock. PLAN: 1. Initiate physical therapy and increase activity as tolerated. 2. He would be a good candidate for rehab placement. 3. Continue the antibiotics. 4. Discussed with his daughter at the bedside.
[2017-10-14] MEDS ORDERED: Prevnar 13-Val Conj/PF 0.5 ML SYRINGE IM ONE (09:15)
--- NOTE | 2017-10-14 16:06 | PDOC.PN ---
- Subjective Encounter Start Date: 10/14/17 Encounter Start Time: 13:00 Patient is seen today, alert and oriented. Discussed with Daughter at Bedside, pt is improving. No other concern noted. - Objective Resuscitation Status: Resuscitation Status FULL:Full Resuscitation MAR Reviewed: Yes Vital Signs & Weight: Vital Signs (12 hours) Temp Pulse Pulse Resp BP BP Pulse Ox 10/14/17 14:24 79 154/90 H 10/14/17 13:00 98.3 F 80 16 138/69 95 10/14/17 08:00 98.5 F 81 16 96 10/14/17 07:30 98.5 F 81 16 162/79 H 96 10/14/17 05:04 82 18 137/67 94 L Weight Weight 187 lb 6.287 oz Most Recent Monitor Data Heart Rate from ECG 80 NIBP 108/59 NIBP BP-Mean 83 Respiration from ECG 28 SpO2 100 I&O: 10/13/17 10/14/17 10/15/17 06:59 06:59 06:59 Intake Total 2495 1070 Output Total 1310 355 Balance 1185 715 Result Diagrams: 10/14/17 04:55 10/13/17 05:15 Radiology Reviewed by me: Yes EKG Reviewed by me: Yes Phys Exam - Physical Examination HEENT: PERRLA, moist MMs Neck: no nodes, no JVD Respiratory: no rales, wheezing present Cardiovascular: RRR, no significant murmur Gastrointestinal: soft, non-tender Musculoskeletal: pulses present, edema present Neurological: non-focal, normal sensation Lymphatic: no nodes Psychiatric: normal affect, A&O x 3 Skin: no rash, normal turgor Dx/Plan (1) Acute systolic CHF (congestive heart failure) Code(s): I50.21 - ACUTE SYSTOLIC (CONGESTIVE) HEART FAILURE Status: Acute Comment: PT is on Holding of ACEI, BB due to low BP, Will need to do IV lasix 20mg IV bid, elevated BNP with marked edema noted., (2) Septic shock Code(s): A41.9 - SEPSIS, UNSPECIFIED ORGANISM; R65.21 - SEVERE SEPSIS WITH SEPTIC SHOCK Status: Acute Comment: resolved. (3) Acute aspiration pneumonia Code(s): J69.0 - PNEUMONITIS DUE TO INHALATION OF FOOD AND VOMIT Status: Acute Comment: Pt has failed Swallow study, discussed with speech, pt is at risk of aspirAtion need to do Barium swallow tomorrow. Will continue for total 7 days. (4) Acute respiratory failure with hypoxia Code(s): J96.01 - ACUTE RESPIRATORY FAILURE WITH HYPOXIA Status: Acute Comment: Pt is stbale with nasal Canula 3-4 literes saturating well, oriented. and alert. pt has pleural effusions likel from CHF, (5) H/O aortic valve repair Status: Acute Comment: Cardiology Consulted, Echo showed 40-45%, no Endocarditiis. H/o aortic valave repair. (6) Acute UTI Code(s): N39.0 - URINARY TRACT INFECTION, SITE NOT SPECIFIED Status: Acute Comment: Waitng for the cultures. COntinue abouve Abx, good urine output Noted. No growth - Plan cont current plan of care, plan discussed w/ family, PT/OT, social work assistant, speech therapy, respiratory therapy, incentive spirometry, DVT proph w/lovenox * . - Discharge Day Encounter end time: 13:35 Review of Systems - Review of Systems Constitutional: negative: fever, chills, sweats, weakness, malaise, other Eyes: negative: Pain, Vision Change, Conjunctivae Inflammation, Eyelid Inflammation, Redness, Other ENT: negative: Ear Pain, Ear Discharge, Nose Pain, Nose Discharge, Nose Congestion, Mouth Pain, Mouth Swelling, Throat Pain, Throat Swelling, Other Respiratory: Cough, SOB with Excertion, Wheezing Cardiovascular: negative: chest pain, palpitations, orthopnea, paroxysmal nocturnal dyspnea, edema, light headedness, other Gastrointestinal: negative: Nausea, Vomiting, Abdominal Pain, Diarrhea, Constipation, Melena, Hematochezia, Other Genitourinary: negative: Dysuria, Frequency, Incontinence, Hematuria, Retention , Other Musculoskeletal: negative: Neck Pain, Shoulder Pain, Arm Pain, Back Pain, Hand Pain, Leg Pain, Foot Pain, Other Skin: negative: Rash, Lesions, Danny, Bruising, Other Neurological: negative: Weakness, Numbness, Incoordination, Change in Speech, Confusion, Seizures, Other - Medications/Allergies Allergies/Adverse Reactions: Allergies Allergy/AdvReac Type Severity Reaction Status Date / Time No Known Drug Allergies Allergy Verified 10/10/17 21:44 Medications: Current Medications Aspirin (Aspirin) 325 mg PO DAILY [facility] Last Admin: 10/14/17 08:48 Dose: 325 mg Enoxaparin Sodium (Lovenox) 40 mg SC 0900 [facility] Last Admin: 10/14/17 08:48 Dose: 40 mg Famotidine (Pepcid) 20 mg PO Q12HR [facility] Last Admin: 10/14/17 08:48 Dose: 20 mg Furosemide (Lasix) 20 mg SLOW IVP DAILY [facility] Guaifenesin/Dextromethorphan (Robitussin Dm) 10 ml PO Q6H PRN PRN Reason: Cough Levofloxacin (Levaquin) 500 mg PO 0600 [facility] Ondansetron HCl (Zofran) 4 mg IVP Q6H PRN PRN Reason: Nausea/Vomiting Potassium Chloride (K-Dur) 20 meq PO QAM-WM [facility] Rosuvastatin Calcium (Crestor) 5 mg PO HS [facility] Last Admin: 10/13/17 20:45 Dose: 5 mg Sodium Chloride (Flush - Normal Saline) 10 ml IVF Q12HR [facility] Sodium Chloride (Flush - Normal Saline) 10 ml IVF PRN PRN PRN Reason: Saline Flush
[2017-10-14] MEDS: Rosuvastatin 5 MG TAB PO SCH (21:45)
[2017-10-15] MEDS ORDERED: Furosemide 20 MG/2 ML VIAL SLOW IVP SCH (09:00)
[2017-10-15] MEDS: Aspirin 325 MG TAB PO SCH (11:55)
[2017-10-15] MEDS: Potassium Chloride 20 MEQ TAB PO SCH ×3 (11:55→20:29)
[2017-10-15] MEDS: Enoxaparin Sodium 40 MG/0.4 ML SYRINGE SC SCH (11:56)
[2017-10-15] MEDS: Famotidine 20 MG TAB PO SCH ×2 (11:56→20:28)
[2017-10-15 12:00] LABS: Hemoglobin 13.2 g/dL (14.0-18.0); Mean Corpuscular HGB CONC 33.2 g/dL (32.0-36.0); Mean Corpuscular Hemoglobin 29.8 pg (27.0-31.0); Mean Corpuscular Volume 89.6 fl (80.0-94.0); Mean Platelet Volume 7.1 fL (7.4-10.4); Platelet Count 165 thou/uL (130-400); RBC Distribution Width 12.8 % (11.5-14.5); Red Blood Cell (RBC) Count 4.45 mill/uL (4.70-6.10); White Blood Cell (WBC) Count 6.6 thou/uL (4.8-10.8)
--- NOTE | 2017-10-15 12:09 | RAD ---
MODIFIED BARIUM SWALLOW: Date: 10/15/17 PROVIDED CLINICAL HISTORY: Dysphagia, oropharyngeal phase, and feeding difficulties. Community-acquired pneumonia. FINDINGS: Multiple consistencies of oral barium were administered by the speech pathologist with fluoroscopy pe rformed. There is premature spillage of contrast material with all consistencies, including to the re gion of the piriform sinuses. There is evidence for aspiration with thin liquids. There is incomplete clearing/residua formation noted with thicker consistencies. Please see speech therapy consultation for full details. IMPRESSION: As above. POS: [facility]
[2017-10-15 12:24] LABS: Anion Gap 12 mmol/L (10-20); BUN (Urea Nitrogen) 15 mg/dL (8.4-25.7); Calc. Creatinine Clearance 85 mL/min (70-130); Calcium 9.4 mg/dL (7.8-10.44); Carbon Dioxide 25 mmol/L (23-31); Chloride 108 mmol/L (98-107); Estimated GFR-MDRD Greater than 90; Glucose 85 mg/dL (83-110); Sodium 142 mmol/L (136-145)
[2017-10-15 12:31] LABS: Band 4 % (5-11); Lymphocytes 15 % (21-51); MDiff Complete? YES; Metamyelocyte 2 % (0-0); Monocytes 12 % (0-10); Myelocyte 4 % (0-0); Neutrophil 63 % (42-75); PLT Morphology Comment Appears Adequate; RBC Morphology Normal
--- NOTE | 2017-10-15 14:53 | PRG ---
DATE OF SERVICE: 10/15/2017 SUBJECTIVE: Jason has no complaints today. His only complaint is he is too weak to sit up on his o wn. OBJECTIVE: VITAL SIGNS: He is afebrile, heart rate 80, respiratory rate 21, oximetry is 96 on 2 liters, blood p ressure 168/76. LUNGS: Clear anteriorly. HEART: Regular rhythm. ABDOMEN: Soft. Modified barium swallow done this morning show evidence of aspiration of thin liquids and complete cl earing of thicker consistencies. IMPRESSION: Community-acquired pneumonia, clinically stable. He is on p.o. antibiotics. He is stil l getting IV Lasix once a day. I will discontinue this and remove his central line. His physical th erapy is the biggest issue at this point in time.
--- NOTE | 2017-10-15 16:09 | PDOC.PN ---
- Subjective Encounter Start Date: 10/15/17 Encounter Start Time: 07:00 Patient is seen today, alert and oriented. No other concerns noted. pt remains Week, waiting on [place] Study today. - Objective Resuscitation Status: Resuscitation Status FULL:Full Resuscitation MAR Reviewed: Yes Vital Signs & Weight: Vital Signs (12 hours) Temp Pulse Resp BP Pulse Ox 10/15/17 12:05 98.1 F 80 22 H 142/71 H 98 10/15/17 08:08 97.9 F 80 21 H 96 10/15/17 07:39 97.9 F 80 21 H 168/76 H 96 Weight Weight 203 lb 1.6 oz Most Recent Monitor Data Heart Rate from ECG 80 NIBP 108/59 NIBP BP-Mean 83 Respiration from ECG 28 SpO2 100 I&O: 10/14/17 10/15/17 10/16/17 06:59 06:59 07:59 Intake Total 1070 Output Total 355 Balance 715 Result Diagrams: 10/15/17 11:31 10/15/17 11:31 Radiology Reviewed by me: Yes Phys Exam - Physical Examination HEENT: PERRLA, moist MMs Neck: no nodes, no JVD Respiratory: no wheezing, no rales Cardiovascular: RRR, no significant murmur Gastrointestinal: soft, non-tender Musculoskeletal: pulses present, edema present Neurological: non-focal, normal sensation Lymphatic: no nodes Psychiatric: normal affect, A&O x 3 Dx/Plan (1) Acute systolic CHF (congestive heart failure) Code(s): I50.21 - ACUTE SYSTOLIC (CONGESTIVE) HEART FAILURE Status: Acute Comment: PT is on Holding of ACEI, BB due to low BP, Will change Po Lasix. (2) Septic shock Code(s): A41.9 - SEPSIS, UNSPECIFIED ORGANISM; R65.21 - SEVERE SEPSIS WITH SEPTIC SHOCK Status: Acute Comment: resolved. (3) Acute aspiration pneumonia Code(s): J69.0 - PNEUMONITIS DUE TO INHALATION OF FOOD AND VOMIT Status: Acute Comment: Pt has failed Swallow study, discussed with speech, pt is at risk of aspirAtion need to do Barium swallow tomorrow. Will continue for total 7 days. (4) Acute respiratory failure with hypoxia Code(s): J96.01 - ACUTE RESPIRATORY FAILURE WITH HYPOXIA Status: Acute Comment: Pt is stbale with nasal Canula 3-4 literes saturating well, oriented. and alert. pt has pleural effusions likel from CHF, (5) H/O aortic valve repair Status: Acute Comment: Cardiology Consulted, Echo showed 40-45%, no Endocarditiis. H/o aortic valave repair. (6) Acute UTI Code(s): N39.0 - URINARY TRACT INFECTION, SITE NOT SPECIFIED Status: Acute Comment: Waitng for the cultures. COntinue abouve Abx, good urine output Noted. No growth - Plan cont current plan of care, plan discussed w/ family, continue antibiotics, PT/OT , delinquency prevention social worker, incentive spirometry, DVT proph w/lovenox * . - Discharge Day Encounter end time: 07:35 Review of Systems - Review of Systems Constitutional: weakness, malaise Eyes: negative: Pain, Vision Change, Conjunctivae Inflammation, Eyelid Inflammation, Redness, Other ENT: negative: Ear Pain, Ear Discharge, Nose Pain, Nose Discharge, Nose Congestion, Mouth Pain, Mouth Swelling, Throat Pain, Throat Swelling, Other Respiratory: negative: Cough, Dry, Shortness of Breath, Hemoptysis, SOB with Excertion, Pleuritic Pain, Sputum, Wheezing Cardiovascular: edema. negative: chest pain, palpitations, orthopnea, paroxysmal nocturnal dyspnea, light headedness, other Gastrointestinal: negative: Nausea, Vomiting, Abdominal Pain, Diarrhea, Constipation, Melena, Hematochezia, Other Genitourinary: negative: Dysuria, Frequency, Incontinence, Hematuria, Retention , Other Musculoskeletal: negative: Neck Pain, Shoulder Pain, Arm Pain, Back Pain, Hand Pain, Leg Pain, Foot Pain, Other Skin: negative: Rash, Lesions, Danny, Bruising, Other - Medications/Allergies Allergies/Adverse Reactions: Allergies Allergy/AdvReac Type Severity Reaction Status Date / Time No Known Drug Allergies Allergy Verified 10/10/17 21:44 Medications: Current Medications Aspirin (Aspirin) 325 mg PO DAILY [facility] Last Admin: 10/15/17 11:55 Dose: 325 mg Enoxaparin Sodium (Lovenox) 40 mg SC 0900 [facility] Last Admin: 10/15/17 11:56 Dose: 40 mg Famotidine (Pepcid) 20 mg PO Q12HR [facility] Last Admin: 10/15/17 11:56 Dose: 20 mg Furosemide (Lasix) 40 mg PO DAILY-[facility] Guaifenesin/Dextromethorphan (Robitussin Dm) 10 ml PO Q6H PRN PRN Reason: Cough Levofloxacin (Levaquin) 500 mg PO 0600 [facility] Last Admin: 10/15/17 05:07 Dose: Not Given Ondansetron HCl (Zofran) 4 mg IVP Q6H PRN PRN Reason: Nausea/Vomiting Potassium Chloride (K-Dur) 20 meq PO QAM-WM [facility] Last Admin: 10/15/17 11:55 Dose: 20 meq Potassium Chloride (K-Dur) 20 meq PO 1500,1900 [facility] Stop: 10/15/17 19:01 Rosuvastatin Calcium (Crestor) 5 mg PO HS [facility] Last Admin: 10/14/17 21:45 Dose: Not Given Sodium Chloride (Flush - Normal Saline) 10 ml IVF Q12HR [facility] Last Admin: 10/15/17 11:56 Dose: 10 ml Sodium Chloride (Flush - Normal Saline) 10 ml IVF PRN PRN PRN Reason: Saline Flush
[2017-10-15] MEDS: Rosuvastatin 5 MG TAB PO SCH (20:29)
[2017-10-16] MEDS: Aspirin 325 MG TAB PO SCH (08:09)
[2017-10-16] MEDS: Potassium Chloride 20 MEQ TAB PO SCH (08:09)
[2017-10-16] MEDS: Famotidine 20 MG TAB PO SCH ×2 (08:09→20:11)
[2017-10-16] MEDS: Furosemide 40 MG TAB PO SCH (08:09)
[2017-10-16] MEDS: Enoxaparin Sodium 40 MG/0.4 ML SYRINGE SC SCH (08:09)
--- NOTE | 2017-10-16 13:11 | PDOC.PN ---
- Subjective Encounter Start Date: 10/16/17 Encounter Start Time: 11:30 Patient is seen today, alert and oriented. He is Having severe diarrhea today, remains on nasal canula. - Objective Resuscitation Status: Resuscitation Status FULL:Full Resuscitation MAR Reviewed: Yes Vital Signs & Weight: Vital Signs (12 hours) Temp Pulse Resp BP Pulse Ox 10/16/17 08:00 98.2 F 80 16 98 10/16/17 07:44 98.2 F 80 16 154/83 H 98 10/16/17 03:46 98 F 79 16 153/83 H 94 L Weight Weight 203 lb 1.6 oz Most Recent Monitor Data Heart Rate from ECG 80 NIBP 108/59 NIBP BP-Mean 83 Respiration from ECG 28 SpO2 100 I&O: 10/15/17 10/16/17 10/17/17 05:59 06:59 06:59 Intake Total Balance Result Diagrams: 10/15/17 11:31 10/15/17 11:31 Phys Exam - Physical Examination HEENT: PERRLA, moist MMs Neck: no nodes, no JVD Respiratory: wheezing present (rales noted both lungs) Cardiovascular: RRR, no rub, gallop Gastrointestinal: soft, non-tender Musculoskeletal: pulses present, edema present Neurological: non-focal, normal sensation Lymphatic: no nodes Psychiatric: normal affect, A&O x 3 Skin: no rash, normal turgor Dx/Plan (1) Acute systolic CHF (congestive heart failure) Code(s): I50.21 - ACUTE SYSTOLIC (CONGESTIVE) HEART FAILURE Status: Acute Comment: PT is on Holding of ACEI, BB due to low BP, Will change Po Lasix. (2) Septic shock Code(s): A41.9 - SEPSIS, UNSPECIFIED ORGANISM; R65.21 - SEVERE SEPSIS WITH SEPTIC SHOCK Status: Acute Comment: resolved. (3) Acute aspiration pneumonia Code(s): J69.0 - PNEUMONITIS DUE TO INHALATION OF FOOD AND VOMIT Status: Acute Comment: Pt has failed Swallow study, discussed with speech, pt is at risk of aspirAtion, follow speech recommedations, Will continue for total 7 days. (4) Acute respiratory failure with hypoxia Code(s): J96.01 - ACUTE RESPIRATORY FAILURE WITH HYPOXIA Status: Acute Comment: Pt is stbale with nasal Canula 3-4 literes saturating well, oriented. and alert. pt has pleural effusions likel from CHF, (5) H/O aortic valve repair Status: Acute Comment: Cardiology Consulted, Echo showed 40-45%, no Endocarditiis. H/o aortic valave repair. (6) Acute UTI Code(s): N39.0 - URINARY TRACT INFECTION, SITE NOT SPECIFIED Status: Acute Comment: Waitng for the cultures. COntinue abouve Abx, good urine output Noted. No growth (7) Diarrhea Code(s): R19.7 - DIARRHEA, UNSPECIFIED Status: Acute Qualifiers: Diarrhea type: unspecified type Qualified Code(s): R19.7 - Diarrhea, unspecified Comment: Will morder Stool Cdiff, WBC, stool cultures. Likely from oral Abx, - Plan cont current plan of care, continue antibiotics, PT/OT, child welfare social worker, speech therapy, respiratory therapy, incentive spirometry, out of bed/ambulate, DVT proph w/lovenox * . - Discharge Day Encounter end time: 12:05 Review of Systems - Review of Systems Constitutional: weakness. negative: fever, chills, sweats, malaise, other Eyes: negative: Pain, Vision Change, Conjunctivae Inflammation, Eyelid Inflammation, Redness, Other ENT: negative: Ear Pain, Ear Discharge, Nose Pain, Nose Discharge, Nose Congestion, Mouth Pain, Mouth Swelling, Throat Pain, Throat Swelling, Other Respiratory: Cough, SOB with Excertion, Wheezing. negative: Dry, Shortness of Breath, Hemoptysis, Pleuritic Pain, Sputum Cardiovascular: edema. negative: chest pain, palpitations, orthopnea, paroxysmal nocturnal dyspnea, light headedness, other Gastrointestinal: Diarrhea. negative: Nausea, Vomiting, Abdominal Pain, Constipation, Melena, Hematochezia, Other Musculoskeletal: negative: Neck Pain, Shoulder Pain, Arm Pain, Back Pain, Hand Pain, Leg Pain, Foot Pain, Other Skin: negative: Rash, Lesions, Danny, Bruising, Other - Medications/Allergies Allergies/Adverse Reactions: Allergies Allergy/AdvReac Type Severity Reaction Status Date / Time No Known Drug Allergies Allergy Verified 10/10/17 21:44 Medications: Current Medications Aspirin (Aspirin) 325 mg PO DAILY [facility] Last Admin: 10/16/17 08:09 Dose: 325 mg Enoxaparin Sodium (Lovenox) 40 mg SC 0900 [facility] Last Admin: 10/16/17 08:09 Dose: 40 mg Famotidine (Pepcid) 20 mg PO Q12HR [facility] Last Admin: 10/16/17 08:09 Dose: 20 mg Furosemide (Lasix) 40 mg PO DAILY-[facility] Last Admin: 10/16/17 08:09 Dose: 40 mg Guaifenesin/Dextromethorphan (Robitussin Dm) 10 ml PO Q6H PRN PRN Reason: Cough Levofloxacin (Levaquin) 500 mg PO 0600 [facility] Last Admin: 10/16/17 06:08 Dose: 500 mg Ondansetron HCl (Zofran) 4 mg IVP Q6H PRN PRN Reason: Nausea/Vomiting Potassium Chloride (K-Dur) 20 meq PO QAM-WM [facility] Last Admin: 10/16/17 08:09 Dose: 20 meq Rosuvastatin Calcium (Crestor) 5 mg PO HS [facility] Last Admin: 10/15/17 20:29 Dose: 5 mg Sodium Chloride (Flush - Normal Saline) 10 ml IVF Q12HR [facility] Last Admin: 10/16/17 08:10 Dose: 10 ml Sodium Chloride (Flush - Normal Saline) 10 ml IVF PRN PRN PRN Reason: Saline Flush
--- NOTE | 2017-10-16 17:25 | PRG ---
DATE OF SERVICE: 10/16/2017 SUBJECTIVE: Jose Ramon Gomez was smiling and said he is feeling better today. OBJECTIVE: VITAL SIGNS: He is afebrile, heart rate is 80, respiratory rate 16, oximetry is 98 on 2 liter cannul a. Blood pressure 154/83. LUNGS: Clear. HEART: Regular rhythm. Abdomen: Soft. LABORATORY DATA: There is no new lab today. IMPRESSION: 1. Pneumonia. 2. Deconditioning. 3. Swallowing dysfunction. PLAN: Placement in a skilled unit would probably be preferable.
[2017-10-16] MEDS: Rosuvastatin 5 MG TAB PO SCH (20:11)
--- NOTE | 2017-10-17 08:20 | PDOC.PN ---
- Subjective Encounter Start Date: 10/17/17 Encounter Start Time: 09:50 Subjective: Patient feeling better. Breathing much better. Distressed about having -: BM in bed without control and blames it on being in hospital. Resistent -: to idea of rehab, daughter trying to argue him into it currently. - Objective Resuscitation Status: Resuscitation Status FULL:Full Resuscitation MAR Reviewed: Yes Vital Signs & Weight: Vital Signs (12 hours) Temp Pulse Resp BP Pulse Ox 10/17/17 02:50 98 10/16/17 21:51 98.0 F 80 18 158/74 H 96 Weight Weight 203 lb 1.6 oz Most Recent Monitor Data Heart Rate from ECG 80 NIBP 108/59 NIBP BP-Mean 83 Respiration from ECG 28 SpO2 100 I&O: 10/16/17 10/17/17 10/18/17 06:59 06:59 06:59 Intake Total 790 Balance 790 Result Diagrams: 10/15/17 11:31 10/15/17 11:31 Phys Exam - Physical Examination Constitutional: NAD HEENT: moist MMs Respiratory: no wheezing, no rhonchi occ rales, no increase WOB Cardiovascular: RRR, no significant murmur Gastrointestinal: soft, positive bowel sounds Musculoskeletal: no edema Neurological: non-focal, moves all 4 limbs Psychiatric: normal affect, A&O x 3 Dx/Plan (1) Acute aspiration pneumonia Code(s): J69.0 - PNEUMONITIS DUE TO INHALATION OF FOOD AND VOMIT Status: Acute Comment: Pt has failed Swallow study, discussed with speech, pt is at risk of aspiration, follow speech recommedations, 7 days of abx completed (2) Acute respiratory failure with hypoxia Code(s): J96.01 - ACUTE RESPIRATORY FAILURE WITH HYPOXIA Status: Acute Comment: Pt is stable with nasal Canula 2 liters saturating well, oriented. and alert. pt has pleural effusions likely from CHF (3) Acute CHF (congestive heart failure) Code(s): I50.9 - HEART FAILURE, UNSPECIFIED Status: Acute Qualifiers: Heart failure type: combined systolic and diastolic Qualified Code(s): I50.41 - Acute combined systolic (congestive) and diastolic (congestive) heart failure Comment: EF 45-50%, diastolic dysfunction, previous bioprosthetic aortic valve and pacemaker (4) Dysphagia causing pulmonary aspiration with swallowing Code(s): R13.19 - OTHER DYSPHAGIA Status: Acute Comment: mechanical soft with nectar thick liquids - Plan cont current plan of care, PT/OT d/c antibiotics today -: accepted to [facility] rehab but currently refusing, not able to go -: home with current debility. Family and caser up discussing with -: patient currently. * .
[2017-10-17] MEDS: Aspirin 325 MG TAB PO SCH (08:32)
[2017-10-17] MEDS: Potassium Chloride 20 MEQ TAB PO SCH (08:33)
[2017-10-17] MEDS: Enoxaparin Sodium 40 MG/0.4 ML SYRINGE SC SCH (08:33)
[2017-10-17] MEDS: Famotidine 20 MG TAB PO SCH (08:33)
[2017-10-17] MEDS: Furosemide 40 MG TAB PO SCH (08:33)
[2017-10-17 08:44] VITALS: TEMP 97.7
[2017-10-17] MEDS ORDERED: Atenolol 25 MG TAB PO SCH (09:00)
[2017-10-17] MEDS ORDERED: Non-Formulary Item 1 EACH (Cholecalciferol (Vitamin D3) [Vitamin D3] 5,000 UNIT) PO SCH (09:00)
[2017-10-17] MEDS ORDERED: Tamsulosin HCl 0.4 MG CAP PO SCH (09:00)
[2017-10-17] MEDS ORDERED: ATENOLOL 25 MG PO SCH (09:00)
[2017-10-17 09:50] VITALS: BP 148/77
--- NOTE | 2017-10-17 12:25 | PRG ---
DATE OF SERVICE: 10/17/2017 PHYSICAL EXAMINATION: VITAL SIGNS: Mr. Gomez is afebrile, heart rate 80. Blood pressure 140/77, respiratory rate is 20, oximetry is 94 on 2 liters. GENERAL: He thinks he is well enough to go home, but there is no way he is stable enough to take car e of himself. LUNGS: His lungs are clear anteriorly. He does have mild rhonchi that clear with coughing. CARDIOVASCULAR: Regular rhythm. ABDOMEN: Soft. IMPRESSION: 1. Pneumonia. 2. Extreme deconditioning. 3. Systolic and diastolic heart failure. 4. Oropharyngeal transfer dysphagia. He apparently was accepted to rehab, but he refuses to go. I do not see any way he can be safely discharged home. We will sign off.
--- NOTE | 2017-10-17 17:33 | DIS ---
PRIMARY CARE PHYSICIAN: Dr. Syd Anderson. ADMISSION DIAGNOSES: 1. Septic shock. 2. Aspiration pneumonia. 3. Acute hypoxic respiratory failure. 4. History of aortic valve replacement. 5. Urinary tract infection. 6. Hyperkalemia. 7. Acute kidney injury. 8. Non-ST elevation myocardial infarction. DISCHARGE DIAGNOSES: 1. Aspiration pneumonia. 2. Acute respiratory failure with hypoxia, improved. 3. Acute combined systolic and diastolic congestive heart failure. 4. Dysphagia. 5. History of aortic valve repair. PROCEDURES: 1. Transthoracic echocardiogram showing ejection fraction of 45-50% along with impaired relaxation c ompatible with diastolic dysfunction, bioprosthetic aortic valve along with pacer wires visible. 2. Modified barium swallow showing premature spillage of contrast material with all consistencies in cluding into the region of the piriform sinuses with evidence of aspiration with thin liquids and inc omplete clearing or residual formation with thicker consistencies. CONSULTATIONS: 1. Pulmonology, Dr. Moreno. 2. Cardiology, Dr. Morgan. SUMMARY OF HOSPITAL COURSE: This is an 87-year-old white male with a history of hypertension, pacema ker and recent aortic valve repair. He was found down on his bed with his legs hanging off by a maid . He was very weak and could not get up, noticed to have shortness of breath and saturations in the 80s with systolic blood pressures in the 60s. Patient was brought to the emergency room and he had f luids and notes to have pneumonia on his chest x-ray and eventually was started on Levophed and given antibiotics. The patient was admitted to the ICU. Dr. Moreno was consulted. The patient also not ed to have indeterminate troponins with his cardiac history, Cardiology was consulted and determined this was likely just demand ischemia from his sepsis. Patient did improve over the hospitalization. He is able to be weaned off the pressors, fluids and switch to oral antibiotics. He was noted to be very weak and was moving just a little bit with physical therapy. The patient felt to have had aspi ration as the cause of his pneumonia. He had a modified barium swallow which did show the above resu lts. Speech therapy recommended mechanical soft along with nectar thick liquids and aspiration preca utions. The patient was transitioned to oral antibiotics and then completed a 7-day course of Levaqu in and switched when his antibiotics were stopped. He was determined to be stable and was transferre d to rehabilitation. DISCHARGE MANAGEMENT: Discharged to inpatient rehabilitation at [facility]. ACTIVITY: As tolerated. DIET: Healthy heart diet with mechanical soft and nectar thick liquids. THERAPY: Occupational therapy, physical therapy and speech therapy, oxygen 2 liters via nasal cannul a. MEDICATIONS: 1. Aspirin 325 mg daily. 2. Furosemide 40 mg daily. 3. Potassium chloride 20 mEq daily. 4. Robitussin-DM as needed. 5. Atenolol 25 mg daily. 6. Crestor 5 mg at night. 7. Vitamin D3 of 5000 units daily. 8. Flomax 0.4 mg daily. FOLLOWUP: The patient will also follow up with his primary care physician in 7 days.
== END 2017-10-17 17:25 | DRG 871 ==
LOC: ERS 14:59 → CCU 16:50 → 2NO 10-13 10:28 → T4-B 10-15 17:37
PROVIDERS: ADMIT Family Medicine; ATTEND Family Medicine
PROC: 02HV33Z Insertion of Infusion Device into Superior Vena Cava, Percutaneous Approach (ICD-10-PCS; principal; 2017-10-10)
PROC: 3E0234Z Introduction of Serum, Toxoid and Vaccine into Muscle, Percutaneous Approach (ICD-10-PCS; 2017-10-14)
DX: A41.9 Sepsis, unspecified organism (principal); R65.21 Severe sepsis with septic shock; J69.0 Pneumonitis due to inhalation of food and vomit; I21.4 Non-ST elevation (NSTEMI) myocardial infarction; J96.01 Acute respiratory failure with hypoxia; E87.5 Hyperkalemia; R13.12 Dysphagia, oropharyngeal phase; I50.43 Acute on chronic combined systolic (congestive) and diastolic (congestive) heart failure; N39.0 Urinary tract infection, site not specified; N17.9 Acute kidney failure, unspecified; I11.0 Hypertensive heart disease with heart failure; Z95.0 Presence of cardiac pacemaker; Z95.4 Presence of other heart-valve replacement; Z95.1 Presence of aortocoronary bypass graft; E78.5 Hyperlipidemia, unspecified; Z23 Encounter for immunization
CPT/HCPCS: 36415; 36416; 36556; 51702; 71045; 74230; 80048; 80053; 80202; 81003; 81015; 82533; 82553; 82805; 83605; 83630; 83880; 84145; 84484; 85025; 86140; 87040; 87070; 87086; 87149; 87205; 87324; 87449; 87804; 90471; 90670; 93005; 93306; 94640; 94660; 96361; 96365; 96366; 96367; 96368; 99292; A4216; G0009; G8978-GP-CL; G8979-GP-CJ; G8987-GO-CM; G8988-GO-CK; G8996-GN-CK; G8996-GN-CM; G8997-GN-CI; G8997-GN-CL; J1650; J1940; J1956; J2060; J2543; J3370; J3480; J7050; J7620; S0028

== ENCOUNTER 2018-05-23 14:44 | Outpatient (CLI) | payer MEDICARE, BC ==
[2018-05-23 16:01] LABS: #Eosinphils 0.2 thou/uL (0.0-0.7); #Lymphocytes 1.5 thou/uL (1.20-3.40); #Monocytes 0.9 thou/uL (0.11-0.59); #Neutrophils 6.7 thou/uL (1.40-6.50); %Basophils 0.5 % (0.0-1.0); %Eosinophils 2.2 % (0.0-10.0); %Lymphocytes 16.1 % (21.0-51.0); %Monocytes 9.5 % (0.0-10.0); %Neutrophils 71.7 % (42.0-75.0); Hemoglobin 14.2 g/dL (14.0-18.0); Mean Corpuscular HGB CONC 32.3 g/dL (32.0-36.0); Mean Corpuscular Hemoglobin 29.7 pg (27.0-31.0); Mean Platelet Volume 7.4 fL (7.4-10.4); Platelet Count 178 thou/uL (130-400); RBC Distribution Width 13.6 % (11.5-14.5); Red Blood Cell (RBC) Count 4.77 mill/uL (4.70-6.10); White Blood Cell (WBC) Count 9.4 thou/uL (4.8-10.8)
[2018-05-23 16:07] LABS: PTT 32.8 SEC (22.9-36.1); Prothrombin Time 13.1 SEC (12.0-14.7)
[2018-05-23 16:09] LABS: Bilirubin Negative (Negative); Blood, Urine Large (Negative); Clarity CLOUDY (Clear); Glucose, Urine (Dipstick) Negative (Negative); Leukocyte Large (Negative); Nitrite Negative (Negative); Protein, Urine (Dipstick) 100 mg/dL (Neg-Trace); Specific Gravity, Urine 1.017 (1.002-1.036); Urobilinogen 0.2 mg/dL (0.2-1.0)
[2018-05-23 16:11] LABS: Bacteria/HPF Rare-Few HPF (None Seen); Hyaline Casts/LPF 0-3 HYALINE CAST LPF (0-3 Hyaline); RBC/HPF GREATER THAN 50-TNTC HPF (0-3); Squamous Epithelial 0-3 HPF (0-3)
[2018-05-23 16:21] LABS: Anion Gap 13 mmol/L (10-20); BUN (Urea Nitrogen) 29 mg/dL (8.4-25.7); Calc. Creatinine Clearance 0 mL/min (70-130); Calcium 9.9 mg/dL (7.8-10.44); Carbon Dioxide 25 mmol/L (23-31); Chloride 106 mmol/L (98-107); Estimated GFR-MDRD 57; Glucose 96 mg/dL (83-110); Potassium 4.4 mmol/L (3.5-5.1); Sodium 140 mmol/L (136-145)
--- NOTE | 2018-05-25 08:10 | EKG ---
Test Reason : Blood Pressure : / mmHG Vent. Rate : 080 BPM Atrial Rate : 081 BPM P-R Int : 000 ms QRS Dur : 128 ms QT Int : 392 ms P-R-T Axes : -48 -48 051 degrees QTc Int : 452 ms Electronic ventricular pacemaker When compared with ECG of 10-OCT-2017 15:04, Vent. rate has increased BY 3 BPM Confirmed by HANG WYNNE ([id number]) on 05/25/2018 8:09:40 AM Referred By: SAMMI Confirmed By:HANG WYNNE
== END 2018-05-23 14:45 | disposition home or self-care (01) ==
LOC: LABBT 14:44
PROVIDERS: ATTEND Urology
DX: Z01.818 Encounter for other preprocedural examination (principal); C67.9 Malignant neoplasm of bladder, unspecified; N99.111 Postprocedural bulbous urethral stricture, male
CPT/HCPCS: 80048; 81001; 85025; 85610; 85730; 87077; 87086; 87186; 93005; 93010

== ENCOUNTER 2018-05-26 14:40 | Inpatient (IN) | payer MEDICARE, BC ==
[2018-05-26] MEDS ORDERED: Morphine 4 MG/ML VIAL ONE (16:35)
[2018-05-26 16:59] LABS: #Lymphocytes 0.6 thou/uL (1.20-3.40); #Monocytes 0.6 thou/uL (0.11-0.59); #Neutrophils 4.9 thou/uL (1.40-6.50); %Basophils 0.5 % (0.0-1.0); %Eosinophils 0.7 % (0.0-10.0); %Lymphocytes 10.2 % (21.0-51.0); %Monocytes 9.7 % (0.0-10.0); Hemoglobin 13.1 g/dL (14.0-18.0); Mean Corpuscular HGB CONC 32.7 g/dL (32.0-36.0); Mean Corpuscular Hemoglobin 29.8 pg (27.0-31.0); Mean Corpuscular Volume 91.1 fL (78.0-98.0); Mean Platelet Volume 7.5 fL (7.4-10.4); Platelet Count 155 thou/uL (130-400); RBC Distribution Width 13.3 % (11.5-14.5); Red Blood Cell (RBC) Count 4.41 mill/uL (4.70-6.10); White Blood Cell (WBC) Count 6.2 thou/uL (4.8-10.8)
[2018-05-26 17:04] LABS: Bilirubin Negative (Negative); Blood, Urine Large (Negative); Clarity TURBID (Clear); Glucose, Urine (Dipstick) Negative (Negative); Leukocyte Moderate (Negative); Nitrite Negative (Negative); Protein, Urine (Dipstick) 100 mg/dL (Neg-Trace); Specific Gravity, Urine 1.017 (1.002-1.036); pH, Urine 8.5 (5.0-9.0)
[2018-05-26 17:06] LABS: Bacteria/HPF None Seen HPF (None Seen); Hyaline Casts/LPF 0-3 HYALINE CAST LPF (0-3 Hyaline); Pathc Cast-AUWi Flag 0.14 (0-2.49); RBC/HPF GREATER THAN 50-TNTC HPF (0-3); Squamous Epithelial 0-3 HPF (0-3); WBC/HPF 21-50 HPF (0-3)
[2018-05-26 17:20] LABS: ALT (SGPT) 19 U/L (8-55); AST (SGOT) 28 U/L (5-34); Albumin 4.1 g/dL (3.4-4.8); Alkaline Phosphatase 81 U/L (40-150); Anion Gap 10 mmol/L (10-20); BUN (Urea Nitrogen) 23 mg/dL (8.4-25.7); Bilirubin, Total 1.1 mg/dL (0.2-1.2); Calc. Creatinine Clearance 0 mL/min (70-130); Calcium 9.8 mg/dL (7.8-10.44); Carbon Dioxide 27 mmol/L (23-31); Chloride 102 mmol/L (98-107); Estimated GFR-MDRD 58; Globulin 3.2 g/dL (2.4-3.5); Glucose 96 mg/dL (83-110); Magnesium 2.4 mg/dL (1.6-2.6); Potassium 4.3 mmol/L (3.5-5.1); Protein, Total 7.3 g/dL (5.8-8.1); Sodium 135 mmol/L (136-145)
[2018-05-26 17:24] LABS: CKMB 1.6 ng/mL (0-6.6)
[2018-05-26] MEDS ORDERED: Furosemide 40 MG/4 ML VIAL ONE (18:12)
[2018-05-26] MEDS ORDERED: Acetaminophen 500 MG TAB ONE (18:12)
[2018-05-26] MEDS ORDERED: Piperacillin/Tazobactam 3.375 GM VIAL ONE (18:34)
--- NOTE | 2018-05-26 18:40 | RAD ---
UPRIGHT PORTABLE CHEST ONE VIEW: 05/26/18 HISTORY: 87-year-old male with history of chest pain. COMPARISON: 10/13/17. FINDINGS: Postop midline sternotomy and left ICD. Mild cardiomegaly with some indistinction of the left heart b order. There is some mild bilateral vascular congestion. The previously noted bilateral linear and al veolar infiltrative changes have resolved from the prior study. IMPRESSION: Postop midline sternotomy and left ICD. No confluent pneumonia or overt edema. Minimal indistinction of the left heart border which I favor to be old. POS: [facility]
[2018-05-26] MEDS ORDERED: Piperacillin/Tazobactam 3.375 GM in Sodium Chloride 0.9% 100 ML IVPB SCH (18:45)
--- NOTE | 2018-05-26 19:26 | ULT ---
TESTICULAR ULTRASOUND 05/26/18 INDICATION: Swollen and painful testicles. COMPARISON: None. TECHNIQUE: Lao scale, color doppler, vascular duplex with spectral analysis performed of the testicles. FINDINGS: There is a large right hydrocele. The right testicle measures 2.4 x 3.9 x 2.5 cm. No intratesticular mass or torsion is demonstrated. The left testicle measures 1.9 x 4.1 x 2.1 cm. No intratesticular mass or torsion is demonstrated. There is a small left sided hydrocele. The right epididymis is not well seen. The left epididymis appears within normal limits. There is a s mall 4 mm epididymal head cyst seen involving the left epididymal head. IMPRESSION: 1. Large right and small left hydrocele. 2. No intratesticular mass or torsion demonstrated. POS: [facility]
[2018-05-26 20:10] LABS: Troponin I 0.042 ng/mL (< 0.028)
[2018-05-26 20:39] VITALS: BMI 26.9
[2018-05-26 22:59] LABS: Troponin I 0.042 ng/mL (< 0.028)
[2018-05-27] MEDS ORDERED: Acetaminophen 325 MG TAB PO PRN (01:29)
[2018-05-27] MEDS ORDERED: Ondansetron ODT 4 MG TAB PO PRN (01:29)
[2018-05-27 05:57] LABS: #Eosinphils 0.1 thou/uL (0.0-0.7); #Lymphocytes 0.6 thou/uL (1.20-3.40); #Monocytes 0.6 thou/uL (0.11-0.59); #Neutrophils 4.4 thou/uL (1.40-6.50); %Basophils 0.1 % (0.0-1.0); %Eosinophils 1.5 % (0.0-10.0); %Lymphocytes 11.1 % (21.0-51.0); %Monocytes 10.8 % (0.0-10.0); %Neutrophils 76.4 % (42.0-75.0); Hemoglobin 13.6 g/dL (14.0-18.0); Mean Corpuscular Volume 90.9 fL (78.0-98.0); Mean Platelet Volume 7.4 fL (7.4-10.4); Platelet Count 151 thou/uL (130-400); RBC Distribution Width 13.4 % (11.5-14.5); Red Blood Cell (RBC) Count 4.52 mill/uL (4.70-6.10); White Blood Cell (WBC) Count 5.8 thou/uL (4.8-10.8)
[2018-05-27 06:08] LABS: Anion Gap 12 mmol/L (10-20); BUN (Urea Nitrogen) 24 mg/dL (8.4-25.7); Calc. Creatinine Clearance 45 mL/min (70-130); Calcium 9.5 mg/dL (7.8-10.44); Carbon Dioxide 27 mmol/L (23-31); Chloride 101 mmol/L (98-107); Estimated GFR-MDRD 58; Glucose 96 mg/dL (83-110); Potassium 3.7 mmol/L (3.5-5.1); Sodium 136 mmol/L (136-145)
[2018-05-27] MEDS ORDERED: Prevnar 13-Val Conj/PF 0.5 ML SYRINGE IM ONE (09:00)
--- NOTE | 2018-05-27 09:01 | HP ---
CHIEF COMPLAINT: Pain at the scrotum and increased frequency with urination. HISTORY OF PRESENT ILLNESS: This is an 87-year-old male with past medical history of benign prostati c hypertrophy, hypertension and bladder CA being admitted for urinary retention and pain around his s crotum. Per the patient, he felt that there was a problem around his scrotum 3 days ago and there wa s also some blood in his urine during the same time prior to his recent admission. Patient stated th at now there has been increased swelling around the scrotum and this is causing severe scrotal pain. Patient admits to having some shortness of breath and wheezing. Otherwise, states that he is feelin g well. Does not have any fever, chills, chest pain, palpitations. REVIEW OF SYSTEMS: Positive for scrotal pain, edema in the scrotum, shortness of breath, wheezing. Otherwise has documented in HPI, all other systems are reviewed and are negative. PAST MEDICAL HISTORY: BPH, hypertension, bladder CA. PAST SURGICAL HISTORY: Open heart surgery, status post pacemaker. PSYCHIATRIC HISTORY: No psych history. SOCIAL HISTORY: Patient is a former tobacco smoker, stated that he quit smoking 5 years ago. Denies any illicit drug use. Denies any alcohol use. FAMILY HISTORY: Reviewed and noncontributory. ALLERGIES: No known drug allergies. CURRENT MEDICATIONS: Patient takes Flomax. PHYSICAL EXAMINATION: VITAL SIGNS: Blood pressure is 133/71, pulse of 80, respiratory rate of 20, temperature of 99.2, O2 sat of 98%. CONSTITUTIONAL: Patient is lying in bed, does not appear to be in any acute distress, alert and orie nted x3, speaking in full sentences. HEENT: Normocephalic, atraumatic. Pupils are equal, round, and reactive to light. Extraocular move ments are intact. No scleral icterus. NECK: Trachea is midline. No JVD. Full range of motion. Supple. LUNGS: Patient has bilateral wheezes at the anterior lung goodman and rales at the posterior lung fie lds. CARDIAC: Positive S1, S2. Regular rate and rhythm. No murmurs, no gallops, no rubs appreciated. ABDOMEN: Soft, nontender, nondistended. GENITOURINARY: Patient has edema at the scrotum. Patient has indurated erythematous penis with fore skin. MUSCULOSKELETAL: The patient with 5/5 upper extremity strength and 5/5 lower extremity strength. Go od pulses bilaterally at the upper and lower extremity. NEUROLOGIC: Cranial nerves II-XII grossly intact. No neurologic deficit noted. SKIN: Refer to genitourinary description. PSYCHIATRIC: Normal affect, alert and oriented x3. ED COURSE: Patient received Lasix 40 mg, Tylenol 1 gram, morphine 4 mg, vancomycin and Zosyn. IMAGING DATA: 1. Testicular ultrasound that was done showed patient has testicular hydrocele. 2. Chest x-ray shows postop midline sternotomy and left ICD. No confluent pneumonia or overt edema. Minimal distention of the left heart border which is old. LABORATORY DATA: WBC 6.2, hemoglobin is 13.1, hematocrit is 40.2 and platelets 155. Sodium is 135, potassium is 4.3, BUN 23, creatinine is 1.1 and lactic acid of 0.9. Alkaline phosphatase is 81. Tro ponin 0.042. BNP is 322. Urinalysis positive for leukoesterase and negative for nitrite. ASSESSMENT AND PLAN: 1. This is an 87-year-old male being admitted for UTI. At this point, the patient has been started on antibiotics. We will continue these antibiotics and will be sent for cultures. We will follow up on cultures. 2. Scrotal cellulitis. We will continue patient on antibiotics. We will monitor the patient. 3. History of benign prostatic hypertrophy. We will continue patient on his current medication. 4. Acute congestive heart failure. We will continue patient on Lasix as needed. I will continue to monitor the patient. 5. Bladder cancer, currently stable. We will continue to monitor the patient. 6. Deep venous thrombosis and gastrointestinal prophylaxis.
[2018-05-27] MEDS: cefTRIAXone\\ROCEPHIN 2 GM in Sodium Chloride 0.9% 100 ML IVPB SCH (09:53)
[2018-05-27] MEDS: Atenolol 25 MG TAB PO SCH (09:53)
[2018-05-27] MEDS: Enoxaparin Sodium 40 MG/0.4 ML SYRINGE SC SCH (09:53)
[2018-05-27] MEDS: Loratadine 10 MG TAB PO SCH (09:54)
[2018-05-27] MEDS: Zinc Sulfate 220 MG CAP PO SCH (11:35)
--- NOTE | 2018-05-27 17:01 | PDOC.PN ---
- Subjective Encounter Start Date: 05/27/18 Encounter Start Time: 17:00 Mr. Gomez was seen today in follow-up of scrotal cellulitis. He says the swelling and pain has improved. He notes a little pressure in the supra-pubic area. - Objective Resuscitation Status: Resuscitation Status FULL:Full Resuscitation MAR Reviewed: Yes Vital Signs & Weight: Vital Signs (12 hours) Temp Pulse Resp BP Pulse Ox 05/27/18 12:00 98 F 80 18 120/59 L 97 05/27/18 09:53 80 05/27/18 08:00 98.1 F 80 18 115/61 98 Weight Weight 167 lb 11.2 oz I&O: 05/26/18 05/27/18 05/28/18 06:59 06:59 06:59 Intake Total 360 Balance 360 Result Diagrams: 05/27/18 05:38 05/27/18 05:38 Phys Exam - Physical Examination HEENT: PERRLA Respiratory: no wheezing, no rales, no rhonchi, clear to auscultation bilateral Cardiovascular: RRR, no significant murmur, no rub Gastrointestinal: soft, no distention, positive bowel sounds + supra-pubic tenderness- mild Musculoskeletal: no edema, pulses present Dx/Plan (1) Cellulitis, scrotum Code(s): N49.2 - INFLAMMATORY DISORDERS OF SCROTUM Status: Acute (2) Bladder cancer Status: Chronic (3) Chronic combined systolic and diastolic CHF, NYHA class 2 Code(s): I50.42 - CHRONIC COMBINED SYSTOLIC AND DIASTOLIC HRT FAIL Status: Chronic - Plan * Scrotal Cellulitis- continue Rocephin and Vancomycin- Urology consult * Bladder Cancer- stable- will continue to hold aspirin for scheduled up coming surgery- will also consult Urology to see if he still can undergo surgery. * Combined Systolic and Diastolic Heart failure- compensated
[2018-05-27] MEDS: Vancomycin HCl 1.5 GM in Sodium Chloride 0.9% 250 ML 300 ML IVPB SCH (17:42)
[2018-05-27] MEDS: Tamsulosin HCl 0.4 MG CAP PO SCH (21:26)
[2018-05-27] MEDS: Rosuvastatin 5 MG TAB PO SCH (21:27)
[2018-05-28] MEDS: Atenolol 25 MG TAB PO SCH (08:49)
[2018-05-28] MEDS: cefTRIAXone\\ROCEPHIN 2 GM in Sodium Chloride 0.9% 100 ML IVPB SCH (08:52)
[2018-05-28] MEDS: Loratadine 10 MG TAB PO SCH (08:53)
[2018-05-28] MEDS: Enoxaparin Sodium 40 MG/0.4 ML SYRINGE SC SCH (08:53)
[2018-05-28] MEDS: Zinc Sulfate 220 MG CAP PO SCH (09:05)
--- NOTE | 2018-05-28 15:00 | PDOC.PN ---
- Subjective Encounter Start Date: 05/28/18 Encounter Start Time: 14:58 Mr. Gomez was seen today in follow-up of Scrotal Cellulitis. He says the soreness has improved, as well as the swelling. - Objective Resuscitation Status: Resuscitation Status FULL:Full Resuscitation MAR Reviewed: Yes Vital Signs & Weight: Vital Signs (12 hours) Temp Pulse Resp BP BP Pulse Ox 05/28/18 11:50 98.2 F 80 16 126/69 96 05/28/18 08:49 80 05/28/18 07:44 98.5 F 80 16 110/58 L 98 05/28/18 04:00 98.0 F 80 20 122/68 97 Weight Weight 173 lb 5 oz I&O: 05/27/18 05/28/18 05/29/18 06:59 06:59 06:59 Intake Total 850 Output Total 300 Balance 550 Result Diagrams: 05/27/18 05:38 05/27/18 05:38 Phys Exam - Physical Examination HEENT: PERRLA Respiratory: no wheezing, no rales, no rhonchi, clear to auscultation bilateral Cardiovascular: RRR, no significant murmur, no rub Gastrointestinal: soft, non-tender, no distention, positive bowel sounds + swelling in the scrotal area, as well as some erythema, improved from yesterday Dx/Plan (1) Cellulitis, scrotum Code(s): N49.2 - INFLAMMATORY DISORDERS OF SCROTUM Status: Acute (2) Bladder cancer Status: Chronic (3) Chronic combined systolic and diastolic CHF, NYHA class 2 Code(s): I50.42 - CHRONIC COMBINED SYSTOLIC AND DIASTOLIC HRT FAIL Status: Chronic - Plan * Scrotal Cellulitis- Improving- continue Vancomycin and. Rocephin * Chronic combined systolic and diastolic heart failure- compensated * Bladder Cancer- he has planned surgery this coming
[2018-05-28 17:22] LABS: Vancomycin, Trough 9.1 ug/mL
[2018-05-28] MEDS ORDERED: Vancomycin HCl 1.75 GM in Sodium Chloride 0.9% 500 ML IVPB SCH (18:00)
[2018-05-28] MEDS: Vancomycin HCl 1.5 GM in Sodium Chloride 0.9% 250 ML 300 ML IVPB SCH (18:36)
--- NOTE | 2018-05-28 20:04 | CON ---
DATE OF CONSULTATION: 05/28/2018 REFERRING PHYSICIAN: Thomas Bhatt M.D. REASON FOR INITIAL CONSULTATION: 1. History of bladder cancer. 2. Possible scrotal cellulitis. HISTORY OF PRESENT ILLNESS: Mr. Jose Ramon Gomez Jr. is a pleasant 87-year-old white male brought to [facility] emergency room due to possible scrotal cellulitis. [facility] due to a complaint of urinary retention. The patient pre sented to the Emergency Department after sitting on his right testicle and he felt a popping sensatio n about 3 days ago with a report of gross hematuria as well. The patient reported swelling of his sc rotum and also has a history of heart failure. The patient was brought in by his who also repor ts that he had bladder cancer. Since admission, the patient has been undergoing evaluation for congestive heart failure and indeed d oes have an elevated BNP at 322. He does have a history of prior aortic valve replacement and is onl y on aspirin for that. The patient's urologic history is significant for prostate cancer status post radioactive seeds and external beam radiation therapy and also has a recent history of bladder cance r evaluated originally in [place], [place], now being followed by Dr. Mateus Ortiz of the [facility]. Due to the patient's previous radiation therapy and bladder cancer history, he does have a history of intermittent hematuria. The patient further has some type of urethral str icture or obstructive process and was scheduled to undergo evaluation and treatment in the operating room by Dr. Ortiz on 06/01/2018. The patient has had a recent urine culture positive for Proteus mirabilis and Enterococcus faecalis o n 05/23/2018, but a recent culture testing of the patient's urine on 05/26/2018 shows no growth. PAST MEDICAL HISTORY: 1. Prostate cancer. 2. Urethral stricture disease. 3. Radiation cystitis. 4. Intermittent gross hematuria. 5. Bladder cancer. 6. Hypertension. PAST SURGICAL HISTORY: 1. Open heart surgery with aortic valve replacement using a porcine bioprosthesis. 2. Pacemaker implantation. 3. Transurethral resection of bladder tumor. SOCIAL HISTORY: The patient is a former cigarette smoker who quit more than 10 years ago and also ch ewed tobacco. He denies current alcohol use. He is retired. PSYCHIATRIC HISTORY: Negative. The patient may have some baseline dementia features, although it is unclear from my initial evaluation of him. ALLERGIES: No known drug allergies. CURRENT MEDICATIONS: Complete medication list includes Flomax 0.4 mg p.o. at bedtime. PHYSICAL EXAMINATION: VITAL SIGNS: Temperature is 98.2, pulse 80, respirations 16, O2 saturations 96% on room air, blood p ressure is 126/69. GENERAL: This is a pleasant, elderly white male, in no apparent distress. He is not a very good his melanie today. His filled in some of the details. The patient is oriented to person, place and time, but has difficulty with recall of history. HEENT: Extraocular movements are intact. Sclerae are anicteric. Oropharynx is clear. NECK: Supple. LUNGS: Clear to auscultation bilaterally. CARDIAC: Regular rate and rhythm. There is a median sternotomy scar, which is well healed secondary to heart valve replacement. This is a bioprosthesis type. There is no abnormal clicking sounds hea rd on auscultation. ABDOMEN: Soft, obese, nontender and possibly contains ascites. BACK: No costovertebral angle tenderness. No point tenderness along the course of the spine. GENITOURINARY: Scrotum is notable for a large right-sided hydrocele, smaller left-sided hydrocele as well as some woody edema of the scrotum, particularly notable in the midline. Phallus is without le jorge. Urethral meatus appears adequate externally. 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 There is n o rectal wall mass. There is no evidence of gross blood per rectum. Scrotum shows significant edema . EXTREMITIES: There is trace edema of the bilateral lower extremities, which apparently has resolved somewhat from admission. NEUROLOGIC: Cranial nerves III-XI appeared to be grossly intact. LABORATORY DATA: The patient's admission BNP on 05/26/2018 with 322. Cardiac troponins were initial ly elevated at 0.42 on 2 tests. The patient's kidney function appears to be reasonable with current blood urea nitrogen of 24, creatinine of 1.18. Estimated glomerular filtration rate is 58. Hematologic profile shows a white count of 5800 today with a hemoglobin of 13.6, hematocrit of 41.1. There is 76% neutrophils. There is no elevation of the ANC, which is 4400. MICROBIOLOGY: The patient's urine cultures on this hospital admission have been negative. Blood cul tures are also negative. The patient did have previously obtained urine from 05/23/2018 obtained as a voided collection, which grows Proteus mirabilis and Enterococcus faecalis. ASSESSMENT AND PLAN: 1. Concerns for scrotal cellulitis. This appears to be resolved or resolving on current medical the rapy. The patient's scrotal redness may also be due to chemical irritation secondary to intermittent urinary incontinence. At any rate, it has improved on ceftriaxone and vancomycin. 2. Bladder cancer concerns. The patient did undergo resection in [place], [place] and is currently followed by Dr. Ortiz for his bladder cancer history. Undoubtedly, will undergo cystourethroscopy on the 06/01/2018 planned hospitalization. 3. Infectious Disease concerns. Current urine culture is negative. No evidence of sepsis with no i solation of organisms from the patient's blood. 4. Urethral stricture history and incomplete emptying issues. These are likely secondary to the pat ient's prostate cancer history with radiation therapy including brachytherapy seeds and external beam radiation therapy. The patient is followed by Dr. Ortiz and is currently scheduled for surgical e valuation, innervation and assessment on 06/01/2018. 5. History of prostate cancer. The patient is again followed by Dr. Ortiz. Undoubtedly, PS A, so I am not ordering those on this evaluation. Overall, initial evaluation and assessment of this patient took more than 80 minutes.
[2018-05-28] MEDS: Tamsulosin HCl 0.4 MG CAP PO SCH (20:08)
[2018-05-28] MEDS: Rosuvastatin 5 MG TAB PO SCH (20:08)
[2018-05-29 07:31] VITALS: BP 115/75; TEMP 98.4
[2018-05-29] MEDS: Atenolol 25 MG TAB PO SCH (07:49)
[2018-05-29] MEDS: Enoxaparin Sodium 40 MG/0.4 ML SYRINGE SC SCH (07:51)
[2018-05-29] MEDS: Loratadine 10 MG TAB PO SCH (07:51)
[2018-05-29] MEDS: cefTRIAXone\\ROCEPHIN 2 GM in Sodium Chloride 0.9% 100 ML IVPB SCH (07:51)
[2018-05-29] MEDS: Zinc Sulfate 220 MG CAP PO SCH (08:51)
--- NOTE | 2018-05-29 14:16 | PQF ---
DATE: 05-29-18 ATTN: DR. KERWIN OCONNELL Please exercise your independent, professional judgment in responding to the clarification form. Clinical indicators are provided on the bottom of this form for your review Please check appropriate box(s): HEART FAILURE: A. TYPE: [ ] Systolic / HFrEF [ ] Diastolic / HFpEF [X ] Combined Systolic / Diastolic B. ACUITY [ ] Acute [ ] Acute on Chronic [ ] Chronic [ ] Other diagnosis [ ] Unable to determine In addition, please specify: Present on Admission (POA): [ X ] Yes [ ] No [ ] Unable to determine For continuity of documentation, please document condition throughout progress notes and discharge summary. Thank You. CLINICAL INDICATORS - SIGNS / SYMPTOMS / LABS ER DX: UTI, CHF EXACERBATION, ELEVATED TROPONIN, SCROTAL CELLULITIS H&P: ACUTE CONGESTIVE HEART FAILURE. WE WILL CONTINUE ON LASIX NEEDED. I WILL CONTINUE TO MONITOR PT. SOB, WHEEZING PN DR. OCONNELL 05-28-18: CHRONIC COMBINED SYSTOLIC AND DIASTOLIC CHF CXR: 05-26-18: THERE IS SOME MILD BILATERAL VASCULAR CONGESTION. BNP: 322.0 RISKS: ER: HX OF HEART FAILURE, BLADDER CA, BPH, HTN, PACEMAKER, OPEN HEART SURGERY TREATMENTS: ER: LASIX IV H&P: WE WILL CONTINUE ON LASIX NEEDED. I WILL CONTINUE TO MONITOR PT. (This form is maintained as a part of the permanent medical record) 2014 [employer]. All Rights Reserved [email or web address] Office: [phone] [facility]ENTER[facility]
== END 2018-05-29 16:29 | disposition home or self-care (01) | DRG 690 ==
LOC: ERS 14:40 → 2NO 20:22 → T4-A 05-28 18:31
PROVIDERS: ADMIT Internal Medicine; ATTEND Internal Medicine
DX: N39.0 Urinary tract infection, site not specified (principal); I50.42 Chronic combined systolic (congestive) and diastolic (congestive) heart failure; N40.0 Benign prostatic hyperplasia without lower urinary tract symptoms; Z95.0 Presence of cardiac pacemaker; Z87.891 Personal history of nicotine dependence; N49.2 Inflammatory disorders of scrotum; I11.0 Hypertensive heart disease with heart failure; C67.9 Malignant neoplasm of bladder, unspecified; Z85.46 Personal history of malignant neoplasm of prostate; Z92.3 Personal history of irradiation
CPT/HCPCS: 36415; 71045; 76870; 80048; 80053; 80202; 81001; 81003; 81015; 82553; 83605; 83735; 83880; 84484; 85025; 85610; 85730; 87040; 87077; 87086; 87186; 93005; 93010; 93976; 96365; 96367; 96375; J0696; J1650; J1940; J2270; J2543; J3370; J7050

== ENCOUNTER 2018-07-06 14:38 | Outpatient (CLI) | payer MEDICARE, BC ==
[2018-07-06 16:54] LABS: Hemoglobin 13.3 g/dL (14.0-18.0); Mean Corpuscular HGB CONC 33.1 g/dL (32.0-36.0); Mean Corpuscular Hemoglobin 29.8 pg (27.0-31.0); Mean Corpuscular Volume 90.2 fL (78.0-98.0); Mean Platelet Volume 7.5 fL (7.4-10.4); Platelet Count 230 thou/uL (130-400); RBC Distribution Width 14.2 % (11.5-14.5); Red Blood Cell (RBC) Count 4.45 mill/uL (4.70-6.10); White Blood Cell (WBC) Count 8.2 thou/uL (4.8-10.8)
[2018-07-06 16:55] LABS: Bilirubin Negative (Negative); Blood, Urine Negative (Negative); Clarity CLEAR (Clear); Glucose, Urine (Dipstick) Negative (Negative); Leukocyte Negative (Negative); Nitrite Negative (Negative); Protein, Urine (Dipstick) Trace mg/dL (Neg-Trace); Specific Gravity, Urine 1.019 (1.002-1.036); Urobilinogen 0.2 mg/dL (0.2-1.0)
[2018-07-06 16:57] LABS: Bacteria/HPF None Seen HPF (None Seen); Hyaline Casts/LPF 0-3 HYALINE CAST LPF (0-3 Hyaline); Squamous Epithelial 0-3 HPF (0-3); WBC/HPF 0-3 HPF (0-3)
[2018-07-06 17:00] LABS: Prothrombin Time 12.9 SEC (12.0-14.7)
[2018-07-06 17:01] LABS: PTT 33.7 SEC (22.9-36.1)
[2018-07-06 17:23] LABS: Anion Gap 12 mmol/L (10-20); BUN (Urea Nitrogen) 31 mg/dL (8.4-25.7); Calc. Creatinine Clearance 0 mL/min (70-130); Carbon Dioxide 28 mmol/L (23-31); Chloride 103 mmol/L (98-107); Estimated GFR-MDRD 62; Glucose 101 mg/dL (83-110); Potassium 4.5 mmol/L (3.5-5.1); Sodium 138 mmol/L (136-145)
--- NOTE | 2018-07-07 22:35 | EKG ---
Test Reason : Blood Pressure : / mmHG Vent. Rate : 061 BPM Atrial Rate : 066 BPM P-R Int : 000 ms QRS Dur : 164 ms QT Int : 492 ms P-R-T Axes : 000 035 080 degrees QTc Int : 495 ms AV sequential or dual chamber electronic pacemaker When compared with ECG of 23-MAY-2018 15:42, Vent. rate has decreased BY 19 BPM Confirmed by CORBIN MONTEMAYOR, SOrin ([id number]) on 07/07/2018 10:35:26 PM Referred By: SAMMI Confirmed By:DR. Nathan ALANIZ MD
== END 2018-07-06 14:39 | disposition home or self-care (01) ==
LOC: LABBT 14:38
PROVIDERS: ATTEND Urology
DX: Z01.818 Encounter for other preprocedural examination (principal); C61 Malignant neoplasm of prostate; I50.9 Heart failure, unspecified; C67.8 Malignant neoplasm of overlapping sites of bladder; N99.111 Postprocedural bulbous urethral stricture, male
CPT/HCPCS: 80048; 81001; 85027; 85610; 85730; 87086; 93005; 93010